=== PATIENT | male | born 1980 | race Caucasian/White ===

== ENCOUNTER 2018-08-16 18:32 | Inpatient (IN) ==
[2018-08-16] MEDS ORDERED: 0.9 % Sodium Chloride 1,000 ML IVC ONE (19:32)
[2018-08-16 19:48] LABS: Basophils % 0.2 %; Hemoglobin 13.6 g/dL (12.9-16.9); Immature Granulocytes % 0.6 % (0-4); Lymphocytes # 0.8 K/mcL (0.6-4.6); Lymphocytes % 8.8 %; Mean Corpuscular HGB Conc 34.9 g/dL (31.6-35.5); Mean Corpuscular Hemoglobin 34.4 pg (28.0-33.3); Mean Corpuscular Volume 98.7 fL (83.0-100.0); Mean Platelet Volume 8.4 fL (9.4-12.4); Monocytes # 1.1 K/mcL (0.0-1.3); Monocytes % 12.8 %; Neutrophils # 6.7 K/mcL (1.6-8.9); Platelet Count 140 K/mcL (140-400); Red Blood Count 3.95 M/mcL (4.19-5.50); Red Cell Distribution Width 12.4 % (11.5-14.5); Segmented Neutrophils % 77.6 %; White Blood Count 8.7 K/mcL (4.3-11.1)
[2018-08-16] MEDS ORDERED: *HR* LORazepam 2 MG/ML VIAL IVP ONE (19:51)
[2018-08-16] MEDS ORDERED: Isovue-370 500 ML BOTTLE IVP ONE (19:52)
[2018-08-16] MEDS ORDERED: *HR* LORazepam 2 MG/ML VIAL IVP PRN ×3 (19:55)
[2018-08-16] MEDS ORDERED: Thiamine (B-1) 100 MG TABLET PO SCH (20:00)
[2018-08-16] MEDS ORDERED: Vitamin B Complex/Vit C/Vit E 1 EACH TABLET PO SCH (20:00)
[2018-08-16] MEDS ORDERED: Folic Acid 1 MG TABLET PO SCH (20:00)
[2018-08-16 20:05] LABS: Alanine Aminotransferase 42 Units/L (7-52); Albumin 5.4 g/dL (3.5-5.7); Albumin/Globulin Ratio 1.6 (1.1-2.2); Alkaline Phosphatase 64 Units/L (34-104); Aspartate Amino Transferase 52 Units/L (13-39); BUN/Creatinine Ratio 13 (6-26); Bilirubin,Direct 0.5 mg/dL (0.0-0.2); Bilirubin,Indirect 2.2 mg/dL (0.0-1.2); Bilirubin,Total 2.7 mg/dL (0.3-1.0); Blood Urea Nitrogen 13 mg/dL (6-20); Calcium 10.8 mg/dL (8.6-10.3); Carbon Dioxide 21 mEq/L (23-29); Chloride 90 mEq/L (98-107); Globulin 3.3 g/dL (2.4-3.5); Glucose 101 mg/dL (70-105); Lipase 20 Units/L (11-82); Osmolality,Calculated 282 (280-300); Potassium 4.2 mEq/L (3.5-5.1); Sodium 136 mEq/L (136-145); Total Protein 8.7 g/dL (6.4-8.9); eGFR For African Americans > 60 (> 60); eGFR For Non-African Americans > 60 (> 60)
--- NOTE | 2018-08-16 20:20 | Emergency Department Note ---
Disposition Clinical Impression: Alcohol withdrawal Qualifiers: Complication of substance-induced condition: with unspecified complication Qualified Code(s): F10.239 - Alcohol dependence with withdrawal, unspecified Disposition: Admitted As Inpatient Time of Disposition: 22:28 General Adult HPI - General Chief complaint: ED Nausea/Vomiting/Diarrhea Stated complaint: vomiting after drinking Time Seen by Provider: 08/16/18 19:06 Source: patient, EMS Limitations: no limitations - History of Present Illness HPI Narrative: Mr. Manuel is a 38-year-old male presents to the ED complaining of epigastric pain. He reports he is "alcoholic." States his last drink was last night and he drank over 1 pint of vodka at 1 AM this morning. He denies any recent falls or loss of consciousness. States that he is trying to quit in the past 3 weeks but has had drinks here and there to prevent tremors. Reports epigastric pain is burning in sensation and has history of GERD but has not been taking his asked reflux medication as he is out of them. Had three episodes of bilious emesis today. Denies any hematemesis, hematochezia or melena. Initially complaining of a headache, tremors and heart palpitations. Denies fever, chills, shortness of breath, chest pain, hematuria, dysuria. Pain Scale: 5 - Related Data Home Medications Medication Instructions Recorded Confirmed Esomeprazole Magnesium [Nexium] 20 mg PO DAILY 08/16/18 08/16/18 Allergies Allergy/AdvReac Type Severity Reaction Status Date / Time No Known Allergies Allergy Verified 08/16/18 19:52 Constitutional: Denies: fever, chills Eyes: Denies: eye pain, vision change ENT ED: Denies: ear pain Cardiovascular: Reports: palpitations. Denies: chest pain Respiratory: Denies: cough, dyspnea Gastrointestinal: Reports: abdominal pain (Epigastric region), nausea, vomiting Genitourinary: Denies: dysuria, frequency, hematuria Integumentary: Denies: rash, abrasion Neurological: Reports: headache, other (Tremors) Psychiatric: Reports: anxiety Past Medical History - Past Medical History Medical history: Reports: hypertension, other - Social History Smoking Status: Never smoker Smokeless Tobacco Status: No Alcohol use: Reports: heavy, recent Drug use: Reports: none Physical Exam - General Limitations: no limitations General appearance: alert, in no apparent distress - Head Head exam: atraumatic, normocephalic - Eye Eye exam: Present: normal appearance, EOMI. Absent: scleral icterus, conjunctival injection - ENT ENT exam: normal exam, normal oropharynx, mucous membranes moist - Neck Neck exam: Present: normal inspection, full ROM, trachea midline - Chest Chest inspection: Present: normal inspection. Absent: symmetric chest wall rise, tenderness - Respiratory Respiratory exam: Present: normal lung sounds bilaterally. Absent: respiratory distress, wheezes - Cardiovascular Cardiovascular exam: Present: normal rhythm, tachycardia - Abdominal Exam Abdominal exam: Present: soft, tenderness. Absent: distention, guarding - Extremities Exam Extremities exam: Present: normal inspection, full ROM. Absent: calf tenderness - Neurological Exam Neurological exam: Present: alert, oriented X3, other (Bilateral arm tremors) - Psychiatric Psychiatric exam: Present: anxious - Skin Skin exam: Present: warm, dry, intact Course Vital Signs Temperature 97.3 F L 08/16/18 18:33 Pulse Rate 150 08/16/18 18:33 Respiratory Rate 20 08/16/18 18:33 Blood Pressure 116/78 08/16/18 18:33 O2 Sat by Pulse Oximetry 98 08/16/18 18:33 Temperature 97.3 F L 08/16/18 18:33 Pulse Rate 117 08/16/18 21:39 Respiratory Rate 20 08/16/18 18:33 Blood Pressure 133/78 08/16/18 21:39 O2 Sat by Pulse Oximetry 97 08/16/18 21:39 Oxygen Delivery Oxygen Delivery Room Air Medical Decision Making - [facility] Narrative Medical decision making narrative: Mr. Manuel is a 38 Jose male presented to the ED complaining of epigastric pain. He reports he has history of GERD and this stopped taking his medication because he was out of it. He also has history of alcohol use supports his last alcohol intake was at 1 AM this morning. States he started having episodes of emesis has had 3 bilious emesis today. Additionally complaining of headache, heart palpitations and tremors. CT of abdomen and pelvis is within normal limits. Lipase is within normal l imits. Alcohol level is elevated; bilirubin is elevated. CIWA protocol ordered. GI cocktail ordered. It improved his epigastric pain. Discussed the case with admitting hospitalist and he will be admitted. - Medical Records Medical records reviewed: Yes I reviewed the patient's medical records. - Lab Data Lab results reviewed: Yes I reviewed the patient's lab results. Result diagrams: 08/17/18 06:19 08/17/18 06:19 Lab Results 08/16/18 08/16/18 08/16/18 Range/Units 19:33 19:33 21:42 WBC 8.7 (4.3-11.1) K/mcL RBC 3.95 L (4.19-5.50) M/mcL Hgb 13.6 (12.9-16.9) g/dL Hct 39.0 (37.5-50.1) % MCV 98.7 (83.0-100.0) fL MCH 34.4 H (28.0-33.3) pg MCHC 34.9 (31.6-35.5) g/dL RDW 12.4 (11.5-14.5) % Plt Count 140 (140-400) K/mcL MPV 8.4 L (9.4-12.4) fL Immature Gran % 0.6 (0-4) % Seg Neutrophils % 77.6 % Lymphocytes % 8.8 % Monocytes % 12.8 % Eosinophils % 0.0 % Basophils % 0.2 % Neutrophils # 6.7 (1.6-8.9) K/mcL Lymphocytes # 0.8 (0.6-4.6) K/mcL Monocytes # 1.1 (0.0-1.3) K/mcL Eosinophils # 0.0 (0.0-0.6) K/mcL Basophils # 0.0 (0.0-0.2) K/mcL Sodium 136 (136-145) mEq/L Potassium 4.2 (3.5-5.1) mEq/L Chloride 90 L (98-107) mEq/L Carbon Dioxide 21 L (23-29) mEq/L BUN 13 (6-20) mg/dL Creatinine 1.03 (0.70-1.30) mg/dL Est GFR ( Amer) > 60 (> 60) Est GFR (Non-Af Amer) > 60 (> 60) BUN/Creatinine Ratio 13 (6-26) Glucose 101 (70-105) mg/dL Calculated Osmolality 282 (280-300) Calcium 10.8 H (8.6-10.3) mg/dL Total Bilirubin 2.7 H (0.3-1.0) mg/dL Direct Bilirubin 0.5 H (0.0-0.2) mg/dL Indirect Bilirubin 2.2 H (0.0-1.2) mg/dL AST 52 H (13-39) Units/L ALT 42 (7-52) Units/L Alkaline Phosphatase 64 (34-104) Units/L Serum Total Protein 8.7 (6.4-8.9) g/dL Albumin 5.4 (3.5-5.7) g/dL Globulin 3.3 (2.4-3.5) g/dL Albumin/Globulin Ratio 1.6 (1.1-2.2) Lipase 20 (11-82) Units/L Urine Opiates Screen Negative (Tqsajg=773) ng/mL Ur Barbiturates Screen Negative (Kcssgq=900) ng/mL Ur Phencyclidine Scrn Negative (Cutoff=25) ng/mL Ur Amphetamines Screen Negative (Auxscp=3344) ng/mL U Benzodiazepines Scrn Negative (Gfvaim=842) ng/mL Urine Cocaine Screen Negative (Cutoff= 300) ng/mL U Marijuana (THC) Screen Positive H (Cutoff = 50) ng/mL Ur Drug Screen Interp See Below Ethyl Alcohol 72 H (Less than 10) mg/dL - Radiology Data Radiology results reviewed: Yes I reviewed the patient's radiology results. Critical Care Time Critical Care Time: Yes Total Critical Care Time: 35 Attestation: Acute alcohol withdrawal with tachycardia arrhythmias and hypertension. IV fluid resuscitation and antibiotic epileptics required. Attestation Statement - Attestation Attestation: Dr Mueller note: Pt seen in conjunction w/ Resident Dr Amber Marina; Please see her charting for complete documentation; I spent face to face time w/ the pt and agree w/ the pt's treatment and disposition; patient presents with vomiting and epigastric pain. No lateralizing about pain no lower abdominal pain. Initially states that he only drank one day in the last 3 weeks and yesterday. It is noted tachycardia hypertension and anxiety he was questioned again by ourselves and staff and then he admits to actually drinking everyday for the past 3 weeks. Reports he did drink at home off and last a cane and was able to stop drinking on his own hospitalization in the past but has not had these symptoms prior. La bs are stable. Fluid resuscitation and Ativan given. Admitted and stabilized improved condition.
[2018-08-16 21:04] LABS: Ethanol 72 mg/dL (Less than 10)
[2018-08-16] MEDS ORDERED: GI Cocktail 40 ML EACH PO ONE (21:12)
[2018-08-16 22:04] LABS: Amphetamine Screen,Urine Negative ng/mL (Cutoff=1000); Barbiturate Screen,Urine Negative ng/mL (Cutoff=200); Benzodiazepines Screen,Urine Negative ng/mL (Cutoff=200); Cannabinoid Screen,Urine Positive ng/mL (Cutoff = 50); Cocaine Screen,Urine Negative ng/mL (Cutoff= 300); Opiate Screen,Urine Negative ng/mL (Cutoff=300); Phencyclidine Screen,Urine Negative ng/mL (Cutoff=25)
[2018-08-17] MEDS ORDERED: Naloxone 0.4 MG/ML INJ IVP PRN (05:20)
[2018-08-17] MEDS ORDERED: Pantoprazole 40 MG VIAL IVP ONE (05:26)
--- NOTE | 2018-08-17 05:36 | Internal Med History&Physical ---
Date of Encounter: 08/17/18 Time of Encounter: 04:12 Internal Medicine - H&P: HPI Chief complaint: Alcohol withdrawal Admitted From: Emergency Dept Plans for Post Hospital Care: Home History of present illness: Mr. Manuel is a 38 year old male Patient presented to the emergency room with heartburn like epigastric pain. He has a history of alcohol use, and states that he usually drinks a couple of beers a day. But recently he had a stressful event at work, leaving and going to the liquor store in obtaining a bottle of vodka. He states he drank the entire bottle of vodka about 2 days ago. Upon waking up the next morning he had nausea, vomiting and dizziness as well as epigastric abdominal pain. He attempted to drink Gatorade which he says improved his symptoms but they came back. He was helping his father install and air-conditioning unit in the window on the second floor of his home, but found going up and down the stairs was too much for him. He called the ambulance to take him to the hospital for further evaluation. In the emergency room patient's initial vital signs demonstrated a heart rate of 150, pulse of 20 otherwise within normal limits CBC within normal limits BMP demonstrated a chloride of 90 and carbon dioxide level of 21. Sodium and potassium within normal limits, and kidney function within normal limits. Calcium level X.8 Total bilirubin 2.7, AST 52, ALT 42, Alk Phos 64. Urine tox screen positive for marijuana Blood alcohol level 72 EKG: Sinus tachycardia, no ischemic changes Abdomen and pelvis CT: No acute abnormality, hepatic steatosis Patient was given 1 L of IV fluids, 1 mg by mouth for Acid a GI cocktail, 100 mg of thiamine and 1 vitamin B complex tab. He was started on CIWA protocol and admitted to the hospital for further management. Upon my evaluation, patient is resting comfortably in the hospital bed in no acute distress. He denies chest pain, abdominal pain, nausea, vomiting, diarrhea and constipation. He still has a slight heartburn feeling that his epigastric area of his abdomen. He has a family history of alcoholism and hypertension. Prior to coming to the emergency room he was experiencing nausea and vomiting as well as tremor. He takes melatonin and heartburn medicine but no other regular medicines. He is full code. Past Med Surg Social Fam HX - Past Medical History Medical history: hypertension, other Additional medical history: alcoholism - Social History Smoking Status: Never smoker Smokeless Tobacco Status: No Alcohol use: heavy, recent Drug use: none Internal Medicine - H&P: Meds Esomeprazole Magnesium [Nexium] 20 mg PO DAILY 08/16/18 [History] Allergy/AdvReac Type Severity Reaction Status Date / Time No Known Allergies Allergy Verified 08/16/18 19:52 All Systems PM: A 10-system review of systems was performed and is negative for pertinent findings except as documented above in the HPI. - Constitutional Vitals: Temp Pulse Resp BP Pulse Ox 98.5 F 95 11 132/85 96 08/17/18 04:40 08/17/18 04:40 08/17/18 04:40 08/17/18 04:40 08/17/18 04:40 General appearance: Present: cooperative, A&O X 3, pleasant, no acute distress, answers questions appropriately Exam: - - Head Head exam: Present: normal inspection - Eye Eye exam: Present: EOMI, normal appearance, scleral icterus - Neck Neck exam general surgery: Present: full ROM - Respiratory Respiratory exam: Present: CTAB. Absent: rales, respiratory distress, rhonchi, wheezes - Cardiovascular Cardiovascular exam: Present: RRR. Absent: diastolic murmur, systolic murmur - GI/Abdominal GI/Abdominal exam: Present: normal bowel sounds, soft. Absent: tenderness - Extremities Exam Extremities exam: Present: warm, radial pulses palpable and symmetrical. Absent: calf tenderness, pedal edema, tenderness - Neurological Exam Neurological exam: Present: oriented X3, no focal deficits, strengths equal and symetr throughout. Absent: motor sensory deficit, pronater drift, facial droop, speech deficit Additional comments: No tremor - Skin Skin exam: Present: dry, normal color, warm Internal Med - H&P Results - Labs CBC & Chem 7: 08/16/18 19:33 08/16/18 19:33 Labs: Short CBC 08/16/18 Range/Units 19:33 WBC 8.7 (4.3-11.1) K/mcL Hgb 13.6 (12.9-16.9) g/dL Hct 39.0 (37.5-50.1) % Plt Count 140 (140-400) K/mcL Neutrophils # 6.7 (1.6-8.9) K/mcL BMP 08/16/18 19:33 Sodium 136 Potassium 4.2 Chloride 90 L Carbon Dioxide 21 L BUN 13 Creatinine 1.03 Glucose 101 Calcium 10.8 H Liver Function 08/16/18 Range/Units 19:33 Total Bilirubin 2.7 H (0.3-1.0) mg/dL Direct Bilirubin 0.5 H (0.0-0.2) mg/dL AST 52 H (13-39) Units/L ALT 42 (7-52) Units/L Alkaline Phosphatase 64 (34-104) Units/L Albumin 5.4 (3.5-5.7) g/dL - Impressions ITS Impressions Abdomen/Pelvis CT 08/16/18 19:52 IMPRESSION: No acute abnormality in the abdomen or pelvis. Hepatic steatosis. D/ / Armond Daniel MD / Armond Daniel MD Interpreting Provider: Armond Daniel MD - Assessment and Plan (1) Alcohol withdrawal Current Visit: Yes Status: Acute Assessment and plan: CIWA initiated in ER. Had tremor initially, but this has now resolved. Patient denies going through withdrawal before, but has stopped his alcohol use before for up to 3 weeks time. He says he stopped cold turkey and did not have symptoms like this. Continue CIWA protocol NPO IV Thiamine IV fluids IV protonix Qualifiers: Complication of substance-induced condition: with unspecified complication Qualified Code(s): F10.239 - Alcohol dependence with withdrawal, unspecified (2) GERD (gastroesophageal reflux disease) Current Visit: Yes Status: Acute Assessment and plan: Improved after GI cocktail. Continue IV protonix Qualifiers: Esophagitis presence: without esophagitis Qualified Code(s): K21.9 - Gas tro-esophageal reflux disease without esophagitis (3) Total bilirubin, elevated Current Visit: Yes Status: Acute Assessment and plan: Patient's bilirubin was 2.7. In April of this year his bilirubin was 2.1. Slight scleral icterus on exam. CT of abdomen demonstrates hepatic steatosis. He has a known history of alcoholism. Other liver function tests within normal limits aside from mildly elevated AST of 52. Likely secondary to his alcohol use. Repeat labs in the morning Recommend cessation of alcohol (4) Insomnia Current Visit: Yes Status: Acute Assessment and plan: Patient takes melatonin at home Melatonin as needed Qualifiers: Insomnia type: unspecified Qualified Code(s): G47.00 - Insomnia, unspecified (5) DVT prophylaxis Current Visit: Yes Status: Acute Assessment and plan: SCDs - Time Spent With Patient Total time spent is greater than 50% in coordination of care (as documented) at patient's floor/unit and/or counseling patient: Greater than 35 minutes
[2018-08-17] MEDS ORDERED: 0.9 % Sodium Chloride 1,000 ML IVC ONE (05:40)
[2018-08-17 07:03] LABS: Hematocrit 37.8 % (37.5-50.1); Hemoglobin 12.8 g/dL (12.9-16.9); Mean Corpuscular HGB Conc 33.9 g/dL (31.6-35.5); Mean Corpuscular Hemoglobin 34.2 pg (28.0-33.3); Mean Corpuscular Volume 101.1 fL (83.0-100.0); Mean Platelet Volume 8.6 fL (9.4-12.4); Platelet Count 117 K/mcL (140-400); Red Blood Count 3.74 M/mcL (4.19-5.50); Red Cell Distribution Width 12.4 % (11.5-14.5)
[2018-08-17 07:08] LABS: White Blood Count 3.7 K/mcL (4.3-11.1)
[2018-08-17 07:22] LABS: Alanine Aminotransferase 30 Units/L (7-52); Albumin 4.7 g/dL (3.5-5.7); Albumin/Globulin Ratio 1.7 (1.1-2.2); Alkaline Phosphatase 53 Units/L (34-104); Aspartate Amino Transferase 39 Units/L (13-39); BUN/Creatinine Ratio 18 (6-26); Bilirubin,Total 3.3 mg/dL (0.3-1.0); Blood Urea Nitrogen 16 mg/dL (6-20); Calcium 10.4 mg/dL (8.6-10.3); Carbon Dioxide 28 mEq/L (23-29); Chloride 95 mEq/L (98-107); Globulin 2.7 g/dL (2.4-3.5); Glucose 82 mg/dL (70-105); Osmolality,Calculated 278 (280-300); Phosphorous 3.9 mg/dL (2.7-4.5); Potassium 3.9 mEq/L (3.5-5.1); Sodium 134 mEq/L (136-145); Total Protein 7.4 g/dL (6.4-8.9); eGFR For African Americans > 60 (> 60); eGFR For Non-African Americans > 60 (> 60)
--- NOTE | 2018-08-17 08:03 | Event Note ---
Date of Encounter: 08/17/18 Time of Encounter: 10:00 Mr Kaleb has pmhx HTN and etoh abuse. He is admitted with epigastric pain and elevated T bili in setting of etoh intoxication Awake, family at bedside. His epigastric pain and substernal burning is resolved since receiving gi cocktail last night. no nausea, emesis or abd pain. he is hungry today. Last drink of etoh was heavy intake of bottle of vodka 08/15. No tremors, sweats, palpitations. Denies rash, yellowing of skin or eyes, itching. No ruq pain after meals, bloating or distension. does have his gall bladder. no family hx of liver dz. discussed lab findings and gi consult with pt. answered all questions. gen- alert, awake,appears stated age eyes- pupils equal round , no scleral icterus cv- reg rate and rhythm, normal s1,s2, no murmurs appreciated, no le edema lungs- ctabl, no wheezing, rhonchi or crackles, normal resp effort on room air abd- soft, non tender, non distended, + bs skin- no rash, jaundice neuro- AAOx3, CN grossly intact, no hand tremor Etoh Intoxication etoh level 72 on admit NOT in etoh withdrawal -cont ciwa, bannana bags x3 then will change to oral vitamins/supplements -if etoh withdrawal suspect will occur in next 24 hrs Epigastric pain, resolved, suspect gastritis related to etoh use GERD hx -change to oral PPI, cont to monitor Hepatic Steatosis on CT scan Elevated Tbili, predominant indirect -INR normal, hep panel ordered this morning and neg suspect related to etoh -d/w GI and they will see in consultation today, defer further imaging and testing at this time pending GI recs, repeat cmp in am Sinus tachycardia- resolved with ivfs vte ppx- SCDs and ambulate diet pending gi eval and recs
[2018-08-17 09:37] LABS: INR 1.2; Prothrombin Time 13.1 Seconds (9.4-12.1)
[2018-08-17 10:20] LABS: Hepatitis B Surface Antigen Nonreactive (Nonreactive)
[2018-08-17 10:48] LABS: Hepatitis B Core IgM Nonreactive (Nonreactive)
[2018-08-17 10:49] LABS: Hepatitis C Virus Antibody Nonreactive (Nonreactive)
[2018-08-17 10:50] LABS: Hepatitis A Antibody IgM Nonreactive (Nonreactive)
--- NOTE | 2018-08-17 15:03 | Gastroenterology Consult Note ---
<GreciaAngely Menendez - Last Filed: 08/17/18 14:58> Date of Encounter: 08/17/18 Time of Encounter: 10:00 - Assessment and plan (1) Alcoholic hepatitis without ascites Status: Acute Assessment and plan: 38-year-old male who presented with abdominal pain. He has alcoholic hepatitis with jaundice, no ascites.Meld NA: 17 DF 7.9 [place] class B. there is no indication for steroids at this time. Labratory workup ordered for underlying liver disease. Pt is advised complete abstinence. Monitor labs. (2) Gastritis Status: Acute Assessment and plan: likely alcoholic gastritis. Will start clear liquids, if not tolerated pt will need EGD tomorrow. Dr Delgado to decide if pt needs EGD. Continue pPI. Qualifiers: Gastritis type: alcoholic Chronicity: acute Gastritis bleeding: without bleeding Qualified Code(s): K29.20 - Alcoholic gastritis without bleeding - Time Spent With Patient Total time spent is greater than 50% in coordination of care (as documented) at patient's floor/unit and/or counseling patient: GI History of Present Illness - Data of Consult Patient: new to practice Consult date: 08/17/18 Requesting Physician: Pamela So - Consult Narrative Reason for consult: jaundice, epigastric pain History of present illness: Mr. Manuel is a 38 year old male who presented to the emergency room with heartburn like epigastric pain. He has a history of alcohol use, and states that he usually drinks at least 6 beers or 6 "airplane size bottles of vodka daily'. He admits to drinking this way since the age of 20. He reports he re cently he had a stressful event at work, leaving and going to the liquor store in obtaining a bottle of vodka. He states he drank the entire bottle of vodka about 2 days ago. Upon waking up the next morning he had nausea, vomiting and dizziness as well as epigastric abdominal pain. He attempted to drink Gatorade which he says improved his symptoms but they came back. He reports vomiting, severe GERD and burning in his throat for 2 days prior to admission. He states he has occasional diarrhea when he drinks but he denies any rectal bleeding or melena. He states pain improved with GI coctail. He does take omeprazole daily at home and states if he misses a day he will have severe symptoms. He denies previous endoscopy or family history of liver disease. Meld NA: 17 DF 7.9 [place] class B NSAIDS: none Anticoagulants: none proedures: none Past Med Surg Social Fam HX - Past Medical History Medical history: hypertension, other Additional medical history: alcoholism - Social History Smoking Status: Never smoker Smokeless Tobacco Status: No Alcohol use: heavy, recent Drug use: none Review of Systems: GI: as per [place] GENERAL: denies fever, has some chills EYES: yellow discoloration ENT: denies pain with swallowing or difficulty swallowing CARDIO: denies chest pain, palpitations RESP: No Shortness of breath with exertion : denies change in color of urine NEURO: denies any weakness HEME: Denies any bruising MS: denies joint pain, joint swelling or back pain. DERM: denies rash or itching PSYCH: history of anxiety and depression - Constitutional Vitals: Temp Pulse Resp BP Pulse Ox 98.1 F 72 17 118/80 99 08/17/18 11:33 08/17/18 11:33 08/17/18 11:33 08/17/18 11:33 08/17/18 11:33 Exam: CONSTITUTIONAL:alert, no acute distre ss.HEAD:normocephalic.EYES:jaundice.NECK:no obvious swelling.HEART:regular rate and rhythm, no murmurs.LUNGS:bilateral good air entry.ABDOMEN:non distended, soft, non tender, no masses palpable, no organomegaly.RECTAL EXAM:Deferred.EXTREMITIES:no clubbing, cyanosis or edema.SKIN:jaundice noted.NEUROLOGIC:no obvious focal defect. Results - Labs CBC & Chem 7: 08/17/18 06:19 08/17/18 06:19 Labs: Last Result 08/17/18 08/17/18: 09:25 Calcium 10.4 H Ferritin 393 H Entire Visit 08/17/18 08/17/18 08/17/18 06:19 06:19 08:47 Hgb 12.8 L Hct 37.8 PT 13.1 H Ferritin Total Bilirubin 3.3 H AST 39 ALT 30 08/17/18 09:25 Hgb Hct PT Ferritin 393 H Total Bilirubin AST ALT - ABG ABG results: PT/INR, D-dimer PT 13.1 Seconds (9.4-12.1) H 08/17/18 08:47 - Impressions Impressions Abdomen/Pelvis CT 08/16/18 19:52 IMPRESSION: No acute abnormality in the abdomen or pelvis. Hepatic steatosis. 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 AVOID al cohol. You had abnoraml liver labs and fatty infiltration of the liver as we discussed. You will follow up with the GI doctor Dr Delgado. He will review pending additional labs his team collected while you were here at that appt. Monitor for return of abdominal pain. And as we discussed, if you note any blood in your stool or black tar like stool, contact your doctor immediately. It is recommended you see yor primary doctor in the next week and have a repeat set of lab obtained at that time. 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 Referrals: Corbin Delgado MD [Partnered Physician] - (submitted a web request for Dr. Davenport office to call patient with a hospital follow up) Elliot Wilder DO [Resident] - 08/23/18 2:00 pm Prescriptions: Folic Acid 1 mg PO DAILY #30 tablet Thiamine (B-1) [Vitamin B-1] 100 mg PO DAILY #30 tablet <Corbin Delgado - Last Filed: 08/22/18 04:08> Date of Encounter: 08/17/18 - Time Spent With Patient Total time spent is greater than 50% in coordination of care (as documented) at patient's floor/unit and/or counseling patient: GI History of Present Illness - Data of Consult Requesting Physician: Pamela So - Consult Narrative History of present illness: Mr. Manuel is a 38 year old male - Constitutional Vitals: Temp Pulse Resp BP Pulse Ox 98.3 F 71 16 137/88 98 08/19/18 07:30 08/19/18 12:20 08/19/18 07:30 08/19/18 12:20 08/19/18 12:20 Results - Labs CBC & Chem 7: 08/19/18 06:48 08/18/18 05:56 - ABG ABG results: PT/INR, D-dimer PT 12.8 Seconds (9.4-12.1) H 08/18/18 05:56 - Attending Attestation Patient admitted with acute alcoholic hepatitis as above. Aggressive supportive care for now. Further recommendations to follow. I have personally performed a face to face evaluation on this patient. I have reviewed and agree with the care plan. History and Exam by me shows:
[2018-08-17] MEDS: Thiamine (B-1) 100 MG, Folic Acid 1 MG, MVI, adult with vitamin K 10 ML in 0.9 % Sodi... IVPB SCH (17:02)
[2018-08-18 06:46] LABS: Eosinophils % 0.5 %; Red Blood Count 3.35 M/mcL (4.19-5.50); Red Cell Distribution Width 11.8 % (11.5-14.5)
[2018-08-18 06:49] LABS: Basophils % 0.5 %; Hematocrit 33.5 % (37.5-50.1); Hemoglobin 11.4 g/dL (12.9-16.9); Immature Granulocytes % 0.3 % (0-4); Immature Platelets 3.4 % (1.1-6.1); Lymphocytes % 38.5 %; Mean Platelet Volume 9.3 fL (9.4-12.4); Monocytes # 0.7 K/mcL (0.0-1.3); Neutrophils # 2.8 K/mcL (1.6-8.9); Platelet Count 109 K/mcL (140-400); Segmented Neutrophils % 48.2 %; White Blood Count 5.8 K/mcL (4.3-11.1)
[2018-08-18 06:56] LABS: Alanine Aminotransferase 25 Units/L (7-52); Albumin/Globulin Ratio 1.7 (1.1-2.2); Alkaline Phosphatase 45 Units/L (34-104); Aspartate Amino Transferase 32 Units/L (13-39); BUN/Creatinine Ratio 21 (6-26); Bilirubin,Total 3.2 mg/dL (0.3-1.0); Blood Urea Nitrogen 18 mg/dL (6-20); Calcium 9.6 mg/dL (8.6-10.3); Carbon Dioxide 24 mEq/L (23-29); Chloride 98 mEq/L (98-107); Globulin 2.3 g/dL (2.4-3.5); Glucose 87 mg/dL (70-105); INR 1.1; Osmolality,Calculated 277 (280-300); Potassium 3.6 mEq/L (3.5-5.1); Prothrombin Time 12.8 Seconds (9.4-12.1); Sodium 133 mEq/L (136-145); Total Protein 6.3 g/dL (6.4-8.9); eGFR For African Americans > 60 (> 60); eGFR For Non-African Americans > 60 (> 60)
[2018-08-18 06:57] LABS: Lymphocytes # 2.2 K/mcL (0.6-4.6)
--- NOTE | 2018-08-18 08:03 | Internal Med Progress Note ---
Hospitalist Progress Note - Encounter Date of Encounter: 08/18/18 Time of Encounter: 09:20 - Subjective Interval History: awake. no epigastric pain, n/v with clears last night. has been npo per gi this morning in case getting egd. denies tremors, sweats, palpitations. no rash itching or yellowing of skin - Exam Vitals: Temp Pulse Resp BP Pulse Ox 97.7 F 70 14 108/79 99 08/18/18 07:36 08/18/18 07:36 08/18/18 07:36 08/18/18 07:36 08/18/18 07:36 Exam: gen- alert, awake,appears stated age eyes- pupils equal round , no scleral icterus cv- reg rate and rhythm, normal s1,s2, lungs- ctabl, normal resp effort on room air abd- soft, non tender, non distended, + bs skin- no rash, jaundice neuro- AAOx3, CN grossly intact, no hand tremor - Assessment and Plan (1) Epigastric pain Current Visit: Yes Status: Resolved (2) GERD (gastroesophageal reflux disease) Current Visit: Yes Status: Chronic (3) Total bilirubin, elevated Current Visit: Yes Status: Chronic (4) Alcohol intoxication Current Visit: Yes Status: Resolved (5) Hepatic steatosis Current Visit: Yes Status: Acute - Summary of Assessment and Plan Summary of Assessment and Plan: Mr Manuel has pmhx HTN and etoh abuse. He is admitted with epigastric pain and elevated T bili in setting of etoh intoxication Etoh Intoxication, resolved etoh level 72 on admit Alcohol Abuse hx NOT in etoh withdrawal -cont ciwa, bannana bags x3 then will change to oral vitamins/supplements -if etoh withdrawal suspect will occur today, no ativan requirement as of yet, cont to monitor Epigastric pain, resolved, suspect gastritis related to etoh use GERD hx -oral PPI, possible EGD by GI today, npo, if no plan to scope as tolerated clears will then advance diet, fu GI recs today Hepatic Steatosis on CT scan Elevated Tbili, predominant indirect INR normal, hep panel neg suspect related to etoh -d/w GI and they are following, will fu recs today Acute anemia, suspect dilutional, no active bleeding, but given GI sxs will cont to monitor, gi following as above vte ppx- SCDs and ambulate diet pending gi eval and recs Plan of Care Discussed with: patient Internal Medicine: Result - Labs CBC & Chem 7: 08/18/18 05:56 08/18/18 05:56 Labs: Short CBC 08/18/18 Range/Units 05:56 WBC 5.8 D (4.3-11.1) K/mcL Hgb 11.4 L (12.9-16.9) g/dL Hct 33.5 L (37.5-50.1) % Plt Count 109 L (140-400) K/mcL Neutrophils # 2.8 (1.6-8.9) K/mcL BMP 08/18/18 05:56 Sodium 133 L Potassium 3.6 Chloride 98 Carbon Dioxide 24 BUN 18 Creatinine 0.86 Glucose 87 Calcium 9.6 Liver Function 08/18/18 Range/Units 05:56 Total Bilirubin 3.2 H (0.3-1.0) mg/dL AST 32 (13-39) Units/L ALT 25 (7-52) Units/L Alkaline Phosphatase 45 (34-104) Units/L Albumin 4.0 (3.5-5.7) g/dL - ABG Interpretation ABG results: PT/INR, D-dimer PT 12.8 Seconds (9.4-12.1) H 08/18/18 05:56 - VTE Documentation of Mechanical Device: Intermittent pneumatic compression device Consult Discharge Plan - Plan Referrals: NONE,PCP [Primary Care Provider] - (2) GERD (gastroesophageal reflux disease) Qualifiers: Esophagitis presence: without esophagitis Qualified Code(s): K21.9 - Gastro- esophageal reflux disease without esophagitis (4) Alcohol intoxication Qualifiers: Complication of substance-induced condition: uncomplicated Qualified Code(s): F10.920 - Alcohol use, unspecified with intoxication, uncomplicated
--- NOTE | 2018-08-18 15:48 | Electrocardiograph Report ---
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
--- NOTE | 2018-08-18 15:48 | Electrocardiograph Report ---
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
[2018-08-18] MEDS: Thiamine (B-1) 100 MG, Folic Acid 1 MG, MVI, adult with vitamin K 10 ML in 0.9 % Sodi... IVPB SCH (17:10)
[2018-08-18] MEDS ORDERED: Melatonin 3 MG TABLET PO ONE (21:36)
[2018-08-19 07:41] LABS: Basophils % 0.5 %; Eosinophils # 0.1 K/mcL (0.0-0.6); Eosinophils % 0.8 %; Hematocrit 33.7 % (37.5-50.1); Hemoglobin 11.5 g/dL (12.9-16.9); Immature Granulocytes % 0.3 % (0-4); Lymphocytes # 2.2 K/mcL (0.6-4.6); Lymphocytes % 34.3 %; Mean Corpuscular HGB Conc 34.1 g/dL (31.6-35.5); Mean Corpuscular Hemoglobin 33.9 pg (28.0-33.3); Mean Corpuscular Volume 99.4 fL (83.0-100.0); Mean Platelet Volume 9.5 fL (9.4-12.4); Monocytes # 0.6 K/mcL (0.0-1.3); Monocytes % 9.4 %; Neutrophils # 3.4 K/mcL (1.6-8.9); Platelet Count 101 K/mcL (140-400); Red Blood Count 3.39 M/mcL (4.19-5.50); Red Cell Distribution Width 11.7 % (11.5-14.5); Segmented Neutrophils % 54.7 %; White Blood Count 6.3 K/mcL (4.3-11.1)
[2018-08-19 07:54] LABS: Albumin 4.1 g/dL (3.5-5.7); Albumin/Globulin Ratio 1.7 (1.1-2.2); Bilirubin,Direct 0.4 mg/dL (0.0-0.2); Bilirubin,Indirect 1.8 mg/dL (0.0-1.2); Bilirubin,Total 2.2 mg/dL (0.3-1.0); Globulin 2.4 g/dL (2.4-3.5); Total Protein 6.5 g/dL (6.4-8.9)
--- NOTE | 2018-08-19 10:50 | Internal Med Progress Note ---
Hospitalist Progress Note - Encounter Date of Encounter: 08/19/18 - Exam Vitals: Temp Pulse Resp BP Pulse Ox 98.3 F 64 16 110/79 98 08/19/18 07:30 08/19/18 07:30 08/19/18 07:30 08/19/18 07:30 08/19/18 07:30 - Assessment and Plan (1) Epigastric pain Current Visit: Yes Status: Resolved (2) GERD (gastroesophageal reflux disease) Current Visit: Yes Status: Chronic (3) Total bilirubin, elevated Current Visit: Yes Status: Chronic (4) Alcohol intoxication Current Visit: Yes Status: Resolved (5) Hepatic steatosis Current Visit: Yes Status: Acute - Time Spent with Patient Total time spent is greater than 50% in coordination of care (as documented) at patient's floor/unit and/or counseling patient: Internal Medicine: Result - Labs CBC & Chem 7: 08/19/18 06:48 08/18/18 05:56 Labs: Short CBC 08/19/18 Range/Units 06:48 WBC 6.3 (4.3-11.1) K/mcL Hgb 11.5 L (12.9-16.9) g/dL Hct 33.7 L (37.5-50.1) % Plt Count 101 L (140-400) K/mcL Neutrophils # 3.4 (1.6-8.9) K/mcL Liver Function 08/19/18 Range/Units 06:48 Total Bilirubin 2.2 H (0.3-1.0) mg/dL Direct Bilirubin 0.4 H (0.0-0.2) mg/dL AST 63 H (13-39) Units/L ALT 45 (7-52) Units/L Alkaline Phosphatase 48 (34-104) Units/L Albumin 4.1 (3.5-5.7) g/dL - ABG Interpretation ABG results: PT/INR, D-dimer PT 12.8 Seconds (9.4-12.1) H 08/18/18 05:56 - VTE Documentation of Mechanical Device: Intermittent pneumatic compression device Consult Discharge Plan - Plan Referrals: NONE,PCP [Primary Care Provider] - (2) GERD (gastroesophageal reflux disease) Qualifiers: Esophagitis presence: without esophagitis Qualified Code(s): K21.9 - Gastro- esophageal reflux disease without esophagitis (4) Alcohol intoxication Qualifiers: Complication of substance-induced condition: uncomplicated Qualified Code(s): F10.920 - Alcohol use, unspecified with intoxication, uncomplicated
--- NOTE | 2018-08-19 10:51 | Discharge Summary ---
- NOTES TO OUTPATIENT PROVIDER Notes to Outpatient Provider: follow up with GI for hepatic steatosis with abnormal labs. Anemia and thrombocytopenia with repeat lab draws and fluids this admit. Given his liver disease and epigastric pain on presentation- please check cbc and cmp outpt in next week to confirm improved Orders not resulted at time of discharge: Pending orders 08/17/18 09:25 AFP Tumor Marker Non- Routine SEPIDEH IgG RAJ rflx IFA Routine Alpha-1-AT Deficiency Reflex Routine Celiac Disease Reflex [place]ahan Routine Ceruloplasmin Routine F-Actin IgG Reflex Sm Muscle Routine MPO/PR3 (ANCA) Antibodies Routine Mitochondrial M2 Antibody, IgG Routine Saccharomyces cerevisiae Abs Routine Date of Encounter: 08/19/18 Time of Encounter: 09:30 - Discharge Diagnosis (1) Epigastric pain Priority: Primary Status: Resolved Assessment and Plan: Epigastric pain, resolved, suspect gastritis related to etoh use GERD hx -oral PPI on dc, no egd required this admission but fu with GI outpt (2) GERD (gastroesophageal reflux disease) Priority: Secondary Status: Chronic Assessment and Plan: as above (3) Total bilirubin, elevated Priority: Secondary Status: Chronic Assessment and Plan: Hepatic Steatosis on CT scan Elevated Tbili, predominant indirect down trended with etoh cessation INR normal, hep panel neg autoimmune work up by GI pending -fu with GI outpt for results and continued monitoring (4) Alcohol intoxication Priority: Secondary Status: Resolved Assessment and Plan: Etoh Intoxication, resolved etoh level 72 on admit Alcohol Abuse hx NOT in etoh withdrawal -oral vitamins/supplements -encouraged cessation Qualifiers: Complication of substance-induced condition: uncomplicated Qualified Code(s): F10.920 - Alcohol use, unspecified with intoxication, uncomplicated (5) Hepatic steatosis Priority: Secondary Status: Acute Assessment and Plan: as above Hospital course: Mr. Manuel is a 38 year old male pmhx HTN and etoh abuse. He is admitted with epigastric pain and elevated T bili in setting of etoh intoxication. He did not go through etoh withdrawal while here. He was treated with IV multi vit/thiamine/folate and transitioned to oral supplements on dc with etoh cessation education provided. GI evaluated his for epigastric pain and abnormal LFTs and finding of hepatic steatosis. He did not require procedural intervention. His epigastric pain resolved with gi cocktail and did not return. His LFTs improved without intervention. Autoimmune work up started inpt and pt will fu outpt with GI. He did have drop in hgb this admit without any signs of bleeding. counselled on warning signs of gi bleeding prior to dc and will fu with pcp. Repeat labs outpt in next week. dc to home in stable condition, further details of course are listed in the diagnoses section of this document. Time spent discussing smoking cessation with patient: more than 10 minutes - Time Spent with Patient Total time spent providing and/or coordinating discharge services: Time spent: Greater than 30 minutes (35 min) - Discharge Medications Prescriptions: New Folic Acid 1 mg PO DAILY #30 tablet Thiamine (B-1) [Vitamin B-1] 100 mg PO DAILY #30 tablet Continued Esomeprazole Magnesium [Nexium] 20 mg PO DAILY Lisinopril-HCTZ 20-12.5 [Prinzide 20-12.5] 1 tab PO DAILY Melatonin 5 mg PO HS PRN PRN Reason: Sleep Multivitamin [Daily Multiple Vitamin] 1 tab PO DAILY Home Medications: Esomeprazole Magnesium [Nexium] 20 mg PO DAILY 08/16/18 [History] Lisinopril-HCTZ 20-12.5 [Prinzide 20-12.5] 1 tab PO DAILY 08/17/18 [History] Melatonin 5 mg PO HS PRN 08/17/18 [History] Multivitamin [Daily Multiple Vitamin] 1 tab PO DAILY 08/17/18 [History] Folic Acid 1 mg PO DAILY #30 tablet 08/19/18 [Rx] Thiamine (B-1) [Vitamin B-1] 100 mg PO DAILY #30 tablet 08/19/18 [Rx] Allergies/Adverse Reactions: Allergy/AdvReac Type Severity Reaction Status Date / Time No Known Allergies Allergy Verified 08/17/18 21:29 Date of admission: 08/16/18 22:47 Primary care physician: PCP NONE Consults: 08/17/18 05:28 Consult to Spotlight Operator [CONS] Routine Reason for SW Consult: Alcoholism 08/17/18 08:10 Consult to Gastroenterology [CONS] Routine Consulting Provider: Gastroenterology Thea Reason for Consult: elevating t bili, (pt with etoh abuse), epigastric pain, eval for further work up, intervention Call Completed: Yes Discharging clinician: Pamela So - Constitutional Vitals: Temp Pulse Resp BP Pulse Ox 98.3 F 64 16 110/79 98 08/19/18 07:30 08/19/18 07:30 08/19/18 07:30 08/19/18 07:30 08/19/18 07:30 Exam: awake, alert, eating regular breakfast. no return of epigastric pain, no other pain, n/v/d. feeling great and back to baseline. no yellowing of skin or itching. No tremor sweats or shakes. discussed dc plan in detail and answered all questions. gen- alert, awake,appears stated age eyes- no scleral icterus cv- reg rate and rhythm, normal s1,s2, no le edema lungs- ctabl, normal resp effort on room air abd- soft, non tender, non distended, + bs, no guarding skin- no rash, jaundice neuro- AAOx3, no hand tremor - Patient Status Disposition: Home, Self-Care Condition: Good Functional capacity at discharge: independent ambulation Overall status at discharge: patient is back to baseline - Discharge Instructions Follow Up With: NONE,PCP [Primary Care Provider] - Corbin Delgado MD [Partnered Physician] - Additional Instructions: Continue to take your acid it support analyst Esomeprazole daily in the morning. AVOID alcohol. You had abnoraml liver labs and fatty infiltration of the liver as we discussed. You will follow up with the GI doctor Dr Delgado. He will review pending additional labs his team collected while you were here at that appt. Monitor for return of abdominal pain. And as we discussed, if you note any blood in your stool or black tar like stool, contact your doctor immediately. It is recommended you see yor primary doctor in the next week and have a repeat set of lab obtained at that time. Prescriptions for supplements recommended regarding your alcohol use were sent to your [facility] pharmacy and should be available for picker feeder. - Diet and Activity Activity: increase activity as tolerated Diet: advance to your usual diet - VTE Documentation of Mechanical Device: Intermittent pneumatic compression device
[2018-08-19 12:21] VITALS: BP 137/88
[2018-08-20 10:38] LABS: AFP Tumor Marker Non-Pregnant 2 ng/mL (0-9); Myeloperoxidase Ab 0 AU/mL (0-19); Serine Protease-3 Antibody 1 AU/mL (0-19)
[2018-08-20 10:39] LABS: ANA IgG by ELISA NONE DETECTED (None Detected); F-Actin (sm muscle) Ab IgG 13 Units (0-19); Immunoglobulin A (CELIAC) 278 mg/dL (68-408); Tissue Transglutaminase IgA 0 U/mL (0-3)
[2018-08-21 19:48] LABS: A1A SZ Specimen WHOLE BLOOD; Alpha-1-Antitrypsin S Allele NEGATIVE; Alpha-1-Antitrypsin Z Allele NEGATIVE
[2018-08-22 10:21] LABS: Alpha-1-Antitrypsin 119 mg/dL (90-200)
== END 2018-08-19 15:40 | disposition home or self-care (01) | DRG 392 ==
LOC: EMEROOARM 18:32 → SUATTDRO 22:47 → 2NENU 22:47
PROVIDERS: ADMIT Family Medicine; ATTEND Internal Medicine

== ENCOUNTER 2018-10-01 19:13 | Observation (INO) ==
[2018-10-01] MEDS ORDERED: 0.9 % Sodium Chloride 1,000 ML IVC ONE ×2 (19:37→19:51)
[2018-10-01] MEDS ORDERED: GI Cocktail 40 ML EACH PO ONE (19:39)
[2018-10-01] MEDS ORDERED: Ondansetron 4 MG/2 ML VIAL IVP ONE (19:40)
[2018-10-01] MEDS ORDERED: Pantoprazole 40 MG VIAL IVP ONE (19:51)
[2018-10-01 20:27] LABS: Alanine Aminotransferase 172 Units/L (7-52); Albumin 4.8 g/dL (3.5-5.7); Albumin/Globulin Ratio 1.3 (1.1-2.2); Alkaline Phosphatase 63 Units/L (34-104); Aspartate Amino Transferase 107 Units/L (13-39); BUN/Creatinine Ratio 13 (6-26); Bilirubin,Total 1.5 mg/dL (0.3-1.0); Blood Urea Nitrogen 13 mg/dL (6-20); Calcium 9.9 mg/dL (8.6-10.3); Carbon Dioxide 18 mEq/L (23-29); Chloride 95 mEq/L (98-107); Globulin 3.6 g/dL (2.4-3.5); Glucose 107 mg/dL (70-105); Lipase 47 Units/L (11-82); Osmolality,Calculated 283 (280-300); Potassium 4.1 mEq/L (3.5-5.1); Sodium 136 mEq/L (136-145); Total Protein 8.4 g/dL (6.4-8.9); Troponin I < 0.03 ng/mL (< 0.04); eGFR For African Americans > 60 (> 60); eGFR For Non-African Americans > 60 (> 60)
[2018-10-01] MEDS ORDERED: *HR* LORazepam 2 MG/ML VIAL IVP STA (20:55)
[2018-10-01 21:06] LABS: Basophils # 0.1 K/mcL (0.0-0.2); Hematocrit 41.8 % (37.5-50.1); Hemoglobin 14.6 g/dL (12.9-16.9); Immature Granulocytes % 0.3 % (0-4); Lymphocytes # 1.6 K/mcL (0.6-4.6); Mean Corpuscular HGB Conc 34.9 g/dL (31.6-35.5); Mean Corpuscular Hemoglobin 33.6 pg (28.0-33.3); Mean Corpuscular Volume 96.3 fL (83.0-100.0); Mean Platelet Volume 8.3 fL (9.4-12.4); Monocytes # 0.7 K/mcL (0.0-1.3); Monocytes % 12.3 %; Neutrophils # 3.4 K/mcL (1.6-8.9); Platelet Count 181 K/mcL (140-400); Red Blood Count 4.34 M/mcL (4.19-5.50); Red Cell Distribution Width 12.7 % (11.5-14.5); Segmented Neutrophils % 58.4 %; White Blood Count 5.9 K/mcL (4.3-11.1)
[2018-10-01] MEDS ORDERED: Thiamine (B-1) 100 MG TABLET PO STA (21:08)
[2018-10-01] MEDS ORDERED: Multivit/Ca/Min/Fe/FA 1 TAB TABLET PO STA (21:08)
[2018-10-02] MEDS ORDERED: Naloxone 0.4 MG/ML INJ IVP PRN (01:15)
[2018-10-02] MEDS: Ondansetron 4 MG/2 ML VIAL IVP PRN (01:29)
[2018-10-02] MEDS: 0.9 % Sodium Chloride 1,000 ML IVC SCH ×2 (01:33→09:42)
[2018-10-02] MEDS ORDERED: *HR* LORazepam 2 MG/ML VIAL IVP PRN ×2 (01:52)
[2018-10-02] MEDS: *HR* LORazepam 2 MG/ML VIAL IVP PRN ×2 (02:14→23:32)
[2018-10-02 05:51] LABS: Hematocrit 35.7 % (37.5-50.1); Mean Corpuscular HGB Conc 34.5 g/dL (31.6-35.5); Mean Corpuscular Hemoglobin 34.5 pg (28.0-33.3); Mean Platelet Volume 8.3 fL (9.4-12.4); Platelet Count 154 K/mcL (140-400); Red Blood Count 3.57 M/mcL (4.19-5.50); Red Cell Distribution Width 13.1 % (11.5-14.5); White Blood Count 3.8 K/mcL (4.3-11.1)
[2018-10-02 05:54] LABS: Hemoglobin 12.3 g/dL (12.9-16.9)
[2018-10-02] MEDS: Pantoprazole 40 MG VIAL IVP SCH (05:59)
[2018-10-02 06:11] LABS: Alanine Aminotransferase 135 Units/L (7-52); Albumin 4.4 g/dL (3.5-5.7); Albumin/Globulin Ratio 1.5 (1.1-2.2); Alkaline Phosphatase 59 Units/L (34-104); Aspartate Amino Transferase 76 Units/L (13-39); BUN/Creatinine Ratio 15 (6-26); Bilirubin,Direct 0.3 mg/dL (0.0-0.2); Bilirubin,Indirect 1.3 mg/dL (0.0-1.2); Bilirubin,Total 1.6 mg/dL (0.3-1.0); Blood Urea Nitrogen 13 mg/dL (6-20); Calcium 9.1 mg/dL (8.6-10.3); Carbon Dioxide 23 mEq/L (23-29); Chloride 98 mEq/L (98-107); Globulin 2.9 g/dL (2.4-3.5); Glucose 78 mg/dL (70-105); Magnesium 1.5 mg/dL (1.6-2.6); Osmolality,Calculated 285 (280-300); Phosphorous 4.1 mg/dL (2.7-4.5); Potassium 4.1 mEq/L (3.5-5.1); Sodium 138 mEq/L (136-145); Total Protein 7.3 g/dL (6.4-8.9); eGFR For African Americans > 60 (> 60); eGFR For Non-African Americans > 60 (> 60)
[2018-10-02] MEDS: *HR* Heparin 5,000 UNIT/ML VIAL SQ SCH ×2 (15:17→21:02)
[2018-10-02] MEDS: Thiamine (B-1) 100 MG, Folic Acid 1 MG, MVI, adult with vitamin K 10 ML in 0.9 % Sodi... IVPB SCH (17:47)
[2018-10-03 02:44] LABS: Basophils % 0.7 %; Eosinophils % 0.5 %; Hematocrit 34.7 % (37.5-50.1); Hemoglobin 11.6 g/dL (12.9-16.9); Immature Granulocytes % 0.2 % (0-4); Lymphocytes # 1.7 K/mcL (0.6-4.6); Lymphocytes % 42.7 %; Mean Corpuscular HGB Conc 33.4 g/dL (31.6-35.5); Mean Corpuscular Hemoglobin 34.1 pg (28.0-33.3); Mean Corpuscular Volume 102.1 fL (83.0-100.0); Mean Platelet Volume 9.1 fL (9.4-12.4); Monocytes # 0.6 K/mcL (0.0-1.3); Monocytes % 14.9 %; Neutrophils # 1.7 K/mcL (1.6-8.9); Platelet Count 136 K/mcL (140-400); Red Cell Distribution Width 12.8 % (11.5-14.5)
[2018-10-03 03:17] LABS: Immature Reticulocyte % 15.5 % (11.0-38.0); Retculocyte # 0.16 M/mcL (0.05-0.10); Reticulocyte % 2.4 % (1.6-2.8)
[2018-10-03 03:22] LABS: % Iron Saturation 96 % (20-55); Alanine Aminotransferase 91 Units/L (7-52); Albumin 3.8 g/dL (3.5-5.7); Albumin/Globulin Ratio 1.5 (1.1-2.2); Alkaline Phosphatase 43 Units/L (34-104); Aspartate Amino Transferase 51 Units/L (13-39); BUN/Creatinine Ratio 14 (6-26); Bilirubin,Total 2.9 mg/dL (0.3-1.0); Blood Urea Nitrogen 14 mg/dL (6-20); Calcium 8.9 mg/dL (8.6-10.3); Carbon Dioxide 23 mEq/L (23-29); Chloride 98 mEq/L (98-107); Ferritin 389 ng/mL (20-250); Globulin 2.6 g/dL (2.4-3.5); Glucose 91 mg/dL (70-105); Iron 260 mcg/dL (65-175); Magnesium 1.9 mg/dL (1.6-2.6); Osmolality,Calculated 274 (280-300); Phosphorous 1.5 mg/dL (2.7-4.5); Potassium 3.6 mEq/L (3.5-5.1); Sodium 132 mEq/L (136-145); Total Protein 6.4 g/dL (6.4-8.9); Transferrin 193 mg/dL (203-362); eGFR For African Americans > 60 (> 60); eGFR For Non-African Americans > 60 (> 60)
[2018-10-03] MEDS: *HR* Heparin 5,000 UNIT/ML VIAL SQ SCH ×3 (05:25→20:39)
[2018-10-03] MEDS: Pantoprazole 40 MG VIAL IVP SCH ×2 (05:25→17:00)
[2018-10-03 09:57] LABS: Hematocrit 37.4 % (37.5-50.1); Hemoglobin 12.5 g/dL (12.9-16.9)
[2018-10-03] MEDS ORDERED: Melatonin 3 MG TABLET PO PRN (14:10)
[2018-10-03] MEDS: Ondansetron 4 MG/2 ML VIAL IVP PRN ×2 (14:13→22:03)
[2018-10-03 14:51] LABS: Hemoglobin 12.8 g/dL (12.9-16.9)
[2018-10-03] MEDS: Thiamine (B-1) 100 MG, Folic Acid 1 MG, MVI, adult with vitamin K 10 ML in 0.9 % Sodi... IVPB SCH (17:00)
[2018-10-03] MEDS: *HR* LORazepam 2 MG/ML VIAL IVP PRN ×2 (17:52→22:03)
[2018-10-03] MEDS: *HR* Promethazine 25 MG/ML VIAL IVP PRN (19:46)
[2018-10-03 21:02] LABS: Hematocrit 39.4 % (37.5-50.1); Hemoglobin 13.3 g/dL (12.9-16.9)
[2018-10-04] MEDS: *HR* Promethazine 25 MG/ML VIAL IVP PRN (01:11)
[2018-10-04 02:40] LABS: Magnesium 1.8 mg/dL (1.6-2.6); Phosphorous 2.2 mg/dL (2.7-4.5)
[2018-10-04 02:41] LABS: Alanine Aminotransferase 85 Units/L (7-52); Albumin 4.1 g/dL (3.5-5.7); Albumin/Globulin Ratio 1.5 (1.1-2.2); Alkaline Phosphatase 51 Units/L (34-104); Aspartate Amino Transferase 52 Units/L (13-39); BUN/Creatinine Ratio 10 (6-26); Bilirubin,Total 1.7 mg/dL (0.3-1.0); Blood Urea Nitrogen 10 mg/dL (6-20); Calcium 9.7 mg/dL (8.6-10.3); Carbon Dioxide 27 mEq/L (23-29); Chloride 98 mEq/L (98-107); Globulin 2.7 g/dL (2.4-3.5); Glucose 91 mg/dL (70-105); Osmolality,Calculated 277 (280-300); Potassium 3.7 mEq/L (3.5-5.1); Sodium 134 mEq/L (136-145); Total Protein 6.8 g/dL (6.4-8.9); eGFR For African Americans > 60 (> 60); eGFR For Non-African Americans > 60 (> 60)
[2018-10-04 02:54] LABS: Basophils % 0.5 %; Hematocrit 33.5 % (37.5-50.1); Immature Granulocytes % 0.2 % (0-4); Lymphocytes # 1.2 K/mcL (0.6-4.6); Lymphocytes % 26.9 %; Mean Corpuscular HGB Conc 34.3 g/dL (31.6-35.5); Mean Corpuscular Hemoglobin 34.2 pg (28.0-33.3); Mean Corpuscular Volume 99.7 fL (83.0-100.0); Mean Platelet Volume 9.3 fL (9.4-12.4); Monocytes # 0.5 K/mcL (0.0-1.3); Monocytes % 10.8 %; Neutrophils # 2.6 K/mcL (1.6-8.9); Platelet Count 143 K/mcL (140-400); Red Blood Count 3.36 M/mcL (4.19-5.50); Red Cell Distribution Width 12.2 % (11.5-14.5); Segmented Neutrophils % 61.6 %; White Blood Count 4.3 K/mcL (4.3-11.1)
[2018-10-04 02:56] LABS: Hemoglobin 11.5 g/dL (12.9-16.9)
[2018-10-04] MEDS: *HR* Heparin 5,000 UNIT/ML VIAL SQ SCH (05:06)
[2018-10-04] MEDS: Pantoprazole 40 MG VIAL IVP SCH (05:06)
[2018-10-04 07:18] VITALS: BP 123/80
[2018-10-04] MEDS ORDERED: NON-FORMULARY MEDICATION 1 EACH EACH (Esomeprazole Magnesium [Nexium] 20 MG) PO SCH (09:00)
[2018-10-04] MEDS ORDERED: Folic Acid 1 MG TABLET PO SCH (09:00)
[2018-10-04] MEDS ORDERED: Thiamine (B-1) 100 MG TABLET PO SCH (09:00)
[2018-10-04 09:05] LABS: Hematocrit 34.6 % (37.5-50.1); Hemoglobin 11.8 g/dL (12.9-16.9)
[2018-10-05] MEDS ORDERED: Thiamine (B-1) 100 MG TABLET PO SCH (09:00)
[2018-10-05] MEDS ORDERED: Folic Acid 1 MG TABLET PO SCH (09:00)
[2018-10-05] MEDS ORDERED: Vitamin B Complex/Vit C/Vit E 1 EACH TABLET PO SCH (09:00)
== END 2018-10-04 11:14 | disposition home or self-care (01) ==
LOC: 3BNU 19:13 → EMEROOARM 19:13 → SUATTDRO 22:28 → 3BNU 23:38
PROVIDERS: ADMIT Internal Medicine; ATTEND Internal Medicine

== ENCOUNTER 2018-11-13 11:36 | Observation (INO) ==
[2018-11-13] MEDS ORDERED: Ondansetron 4 MG/2 ML VIAL IVP ONE (11:51)
[2018-11-13] MEDS: 0.9 % Sodium Chloride 1,000 ML IVC SCH ×2 (12:08→13:31)
[2018-11-13] MEDS ORDERED: diazePAM 5 MG TABLET PO ONE (12:10)
[2018-11-13 12:14] LABS: Basophils # 0.1 K/mcL (0.0-0.2); Basophils % 0.7 %; Hematocrit 42.4 % (37.5-50.1); Hemoglobin 14.5 g/dL (12.9-16.9); Immature Granulocytes % 0.4 % (0-4); Lymphocytes # 0.8 K/mcL (0.6-4.6); Lymphocytes % 11.3 %; Mean Corpuscular HGB Conc 34.2 g/dL (31.6-35.5); Mean Corpuscular Hemoglobin 33.6 pg (28.0-33.3); Mean Corpuscular Volume 98.1 fL (83.0-100.0); Mean Platelet Volume 8.1 fL (9.4-12.4); Monocytes # 0.9 K/mcL (0.0-1.3); Monocytes % 13.1 %; Neutrophils # 5.2 K/mcL (1.6-8.9); Platelet Count 220 K/mcL (140-400); Red Blood Count 4.32 M/mcL (4.19-5.50); Red Cell Distribution Width 13.6 % (11.5-14.5); Segmented Neutrophils % 74.5 %
--- NOTE | 2018-11-13 12:15 | Emergency Department Note ---
Disposition Clinical Impression: Alcohol withdrawal Qualifiers: Complication of substance-induced condition: uncomplicated Qualified Code(s): F10.230 - Alcohol dependence with withdrawal, uncomplicated Disposition: Admitted As Inpatient Condition: Fair Time of Disposition: 15:32 General Adult HPI - General Chief complaint: ED General Medical Stated complaint: alcohol withdrawal Time Seen by Provider: 11/13/18 11:42 Nursing Notes Reviewed: Yes Vital Signs Reviewed: Yes - History of Present Illness HPI Narrative: Presents by saying that he is in alcohol withdrawal. He does not drink, 24 hours, does have some generalized tremulousness as well as insomnia and is drinking 15 or 20 small bottles of liquor per day. Increased during the past week because he has been on medication. He has been to AA in the past but is not currently attending meetings. Does have nausea and vomiting associated. Red material in the vomit but thinks is may be because of a red pill he took for nausea when she got at the pharmacy. He denies any blood in the urine. To have a hard stool this morning and thought there might have been some blood surrounding the stool and some streaks because of the hard stool but he is not sure. Some generalized abdominal discomfort which she thinks is from the vomiting but no other pain. Social history: Nonsmoker, alcohol, no drugs except for occasional marijuana - Related Data Home Medications Medication Instructions Recorded Confirmed Lisinopril-HCTZ 20-12.5 [Prinzide 1 tab PO DAILY 08/17/18 11/13/18 20-12.5] Previous Rx's Medication Instructions Recorded Esomeprazole Magnesium [Nexium] 40 mg PO BID 30 Days #60 capsule. 10/04/18 Allergies Allergy/AdvReac Type Severity Reaction Status Date / Time No Known Allergies Allergy Verified 11/02/18 02:16 All systems ED: reviewed and negative except as stated. Past Medical History - Past Medical History Medical history: Reports: hypertension Psychiatric history: Reports: anxiety - Social History Smoking Status: Never smoker Smokeless Tobacco Status: No Alcohol use: Reports: heavy, recent Drug use: Reports: marijuana Physical Exam CONSTITUTIONAL: Alert and oriented X3, thin, up pacing around the room, seems anxious HEAD: Normocephalic; atraumatic. EYES: PERRL, no scleral icterus. NOSE: The nose is normal in appearance without rhinorrhea RESP: Normal chest excursion with respiration; breath sounds clear and equal bilaterally; no wheezes, rhonchi, or rales CARD: Regular rhythm, without murmurs, rub or gallop ABD: Non-distended; non-tender, soft,without rigidity, rebound or guarding SKIN: Normal for age and race; warm and dry; no apparent lesions Course Vital Signs Pulse Rate 151 11/13/18 11:37 Respiratory Rate 22 11/13/18 11:37 Blood Pressure 148/87 11/13/18 11:37 O2 Sat by Pulse Oximetry 96 11/13/18 11:37 Temperature 99.0 F 11/13/18 18:34 Pulse Rate 90 11/13/18 18:34 Respiratory Rate 15 11/13/18 18:34 Blood Pressure 119/79 11/13/18 18:34 O2 Sat by Pulse Oximetry 98 11/13/18 18:34 Oxygen Delivery Oxygen Delivery Room Air Medical Decision Making - MDM Narrative Medical decision making narrative: Patient's symptoms consistent with alcohol withdrawal and he is given IV fluids, IV Zofran, banana bag, by mouth Valium 10 mg, labs are pending including LFTs and some toxicology screen. 1216 I did review the patient's test results with out acute abnormality and the patient's alcohol level is low and I did recheck on him and he still has generalized tremors but these have improved. His heart rate is improved and is currently 110. I did speak with Dr. Martinez from [facility] who accepts the patient for admission for acute alcohol withdrawal. He has received an additional benzodiazepine Ativan 1 mg IV 1532 Gastric occult is negative for blood and the red coloration emesis was likely from the antinausea medicine he bought [id number] at the pharmacy 1842 - Medical Records Medical records reviewed: Yes I reviewed the patient's medical records. - Lab Data Lab results reviewed: Yes I reviewed the patient's lab results. Result diagrams: 11/13/18 12:02 11/13/18 12:02 Lab Results 11/13/18 11/13/18 11/13/18 Range/Units 12:02 12:02 12:02 WBC 7.0 (4.3-11.1) K/mcL RBC 4.32 (4.19-5.50) M/mcL Hgb 14.5 (12.9-16.9) g/dL Hct 42.4 (37.5-50.1) % MCV 98.1 (83.0-100.0) fL MCH 33.6 H (28.0-33.3) pg MCHC 34.2 (31.6-35.5) g/dL RDW 13.6 (11.5-14.5) % Plt Count 220 (140-400) K/mcL MPV 8.1 L (9.4-12.4) fL Immature Gran % 0.4 (0-4) % Seg Neutrophils % 74.5 % Lymphocytes % 11.3 % Monocytes % 13.1 % Eosinophils % 0.0 % Basophils % 0.7 % Neutrophils # 5.2 (1.6-8.9) K/mcL Lymphocytes # 0.8 (0.6-4.6) K/mcL Monocytes # 0.9 (0.0-1.3) K/mcL Eosinophils # 0.0 (0.0-0.6) K/mcL Basophils # 0.1 (0.0-0.2) K/mcL Sodium 140 (136-145) mEq/L Potassium 4.3 (3.5-5.1) mEq/L Chloride 95 L (98-107) mEq/L Carbon Dioxide 20 L (23-29) mEq/L BUN 15 (6-20) mg/dL Creatinine 1.07 (0.70-1.30) mg/dL Est GFR ( Amer) > 60 (> 60) Est GFR (Non-Af Amer) > 60 (> 60) BUN/Creatinine Ratio 14 (6-26) Glucose 132 H (70-105) mg/dL Calculated Osmolality 293 (280-300) Calcium 10.7 H (8.6-10.3) mg/dL Total Bilirubin 1.7 H (0.3-1.0) mg/dL Direct Bilirubin 0.3 H (0.0-0.2) mg/dL Indirect Bilirubin 1.4 H (0.0-1.2) mg/dL AST 45 H (13-39) Units/L ALT 61 H (7-52) Units/L Alkaline Phosphatase 55 (34-104) Units/L Ammonia (16-53) mcmol/L Serum Total Protein 8.3 (6.4-8.9) g/dL Albumin 5.1 (3.5-5.7) g/dL Globulin 3.2 (2.4-3.5) g/dL Albumin/Globulin Ratio 1.6 (1.1-2.2) Lipase 25 (11-82) Units/L Salicylates (15.0-30.0) mg/dL Urine Opiates Screen (Oakfyi=760) ng/mL Ur Buprenorphine Scrn (Cutoff=5) ng/mL Acetaminophen (10-20) mcg/mL Ur Barbiturates Screen (Qishaw=109) ng/mL Ur Phencyclidine Scrn (Cutoff=25) ng/mL Ur Amphetamines Screen (Oyjlnd=2918) ng/mL U Benzodiazepines Scrn (Wmsrlb=529) ng/mL Urine Cocaine Screen (Cutoff= 300) ng/mL U Marijuana (THC) Screen (Cutoff = 50) ng/mL Ur Drug Screen Interp Ethyl Alcohol 58 H (Less than 10) mg/dL 11/13/18 11/13/18 11/13/18 Range/Units 12:36 12:36 12:36 WBC (4.3-11.1) K/mcL RBC (4.19-5.50) M/mcL Hgb (12.9-16.9) g/dL Hct (37.5-50.1) % MCV (83.0-100.0) fL MCH (28.0-33.3) pg MCHC (31.6-35.5) g/dL RDW (11.5-14.5) % Plt Count (140-400) K/mcL MPV (9.4-12.4) fL Immature Gran % (0-4) % Seg Neutrophils % % Lymphocytes % % Monocytes % % Eosinophils % % Basophils % % Neutrophils # (1.6-8.9) K/mcL Lymphocytes # (0.6-4.6) K/mcL Monocytes # (0.0-1.3) K/mcL Eosinophils # (0.0-0.6) K/mcL Basophils # (0.0-0.2) K/mcL Sodium (136-145) mEq/L Potassium (3.5-5.1) mEq/L Chloride (98-107) mEq/L Carbon Dioxide (23-29) mEq/L BUN (6-20) mg/dL Creatinine (0.70-1.30) mg/dL Est GFR ( Amer) (> 60) Est GFR (Non-Af Amer) (> 60) BUN/Creatinine Ratio (6-26) Glucose (70-105) mg/dL Calculated Osmolality (280-300) Calcium (8.6-10.3) mg/dL Total Bilirubin (0.3-1.0) mg/dL Direct Bilirubin (0.0-0.2) mg/dL Indirect Bilirubin (0.0-1.2) mg/dL AST (13-39) Units/L ALT (7-52) Units/L Alkaline Phosphatase (34-104) Units/L Ammonia 32 (16-53) mcmol/L Serum Total Protein (6.4-8.9) g/dL Albumin (3.5-5.7) g/dL Globulin (2.4-3.5) g/dL Albumin/Globulin Ratio (1.1-2.2) Lipase (11-82) Units/L Salicylates < 2.5 L (15.0-30.0) mg/dL Urine Opiates Screen (Nyurxs=885) ng/mL Ur Buprenorphine Scrn (Cutoff=5) ng/mL Acetaminophen < 10 L (10-20) mcg/mL Ur Barbiturates Screen (Dztbof=157) ng/mL Ur Phencyclidine Scrn (Cutoff=25) ng/mL Ur Amphetamines Screen (Adbgrr=6127) ng/mL U Benzodiazepines Scrn (Nulsmb=953) ng/mL Urine Cocaine Screen (Cutoff= 300) ng/mL U Marijuana (THC) Screen (Cutoff = 50) ng/mL Ur Drug Screen Interp Ethyl Alcohol (Less than 10) mg/dL 11/13/18 Range/Units 13:20 WBC (4.3-11.1) K/mcL RBC (4.19-5.50) M/mcL Hgb (12.9-16.9) g/dL Hct (37.5-50.1) % MCV (83.0-100.0) fL MCH (28.0-33.3) pg MCHC (31.6-35.5) g/dL RDW (11.5-14.5) % Plt Count (140-400) K/mcL MPV (9.4-12.4) fL Immature Gran % (0-4) % Seg Neutrophils % % Lymphocytes % % Monocytes % % Eosinophils % % Basophils % % Neutrophils # (1.6-8.9) K/mcL Lymphocytes # (0.6-4.6) K/mcL Monocytes # (0.0-1.3) K/mcL Eosinophils # (0.0-0.6) K/mcL Basophils # (0.0-0.2) K/mcL Sodium (136-145) mEq/L Potassium (3.5-5.1) mEq/L Chloride (98-107) mEq/L Carbon Dioxide (23-29) mEq/L BUN (6-20) mg/dL Creatinine (0.70-1.30) mg/dL Est GFR ( Amer) (> 60) Est GFR (Non-Af Amer) (> 60) BUN/Creatinine Ratio (6-26) Glucose (70-105) mg/dL Calculated Osmolality (280-300) Calcium (8.6-10.3) mg/dL Total Bilirubin (0.3-1.0) mg/dL Direct Bilirubin (0.0-0.2) mg/dL Indirect Bilirubin (0.0-1.2) mg/dL AST (13-39) Units/L ALT (7-52) Units/L Alkaline Phosphatase (34-104) Units/L Ammonia (16-53) mcmol/L Serum Total Protein (6.4-8.9) g/dL Albumin (3.5-5.7) g/dL Globulin (2.4-3.5) g/dL Albumin/Globulin Ratio (1.1-2.2) Lipase (11-82) Units/L Salicylates (15.0-30.0) mg/dL Urine Opiates Screen Negative (Ahksug=745) ng/mL Ur Buprenorphine Scrn Negative (Cutoff=5) ng/mL Acetaminophen (10-20) mcg/mL Ur Barbiturates Screen Negative (Bxiixr=809) ng/mL Ur Phencyclidine Scrn Negative (Cutoff=25) ng/mL Ur Amphetamines Screen Negative (Ndzvod=5510) ng/mL U Benzodiazepines Scrn Negative (Cxfmxg=856) ng/mL Urine Cocaine Screen Negative (Cutoff= 300) ng/mL U Marijuana (THC) Screen Positive H (Cutoff = 50) ng/mL Ur Drug Screen Interp See Below Ethyl Alcohol (Less than 10) mg/dL Critical Care Time Critical Care Time: No
[2018-11-13 12:31] LABS: Albumin 5.1 g/dL (3.5-5.7); Albumin/Globulin Ratio 1.6 (1.1-2.2); Bilirubin,Direct 0.3 mg/dL (0.0-0.2); Bilirubin,Indirect 1.4 mg/dL (0.0-1.2); Bilirubin,Total 1.7 mg/dL (0.3-1.0); Globulin 3.2 g/dL (2.4-3.5); Total Protein 8.3 g/dL (6.4-8.9)
[2018-11-13 12:32] LABS: BUN/Creatinine Ratio 14 (6-26); Blood Urea Nitrogen 15 mg/dL (6-20); Calcium 10.7 mg/dL (8.6-10.3); Carbon Dioxide 20 mEq/L (23-29); Chloride 95 mEq/L (98-107); Ethanol 58 mg/dL (Less than 10); Glucose 132 mg/dL (70-105); Lipase 25 Units/L (11-82); Osmolality,Calculated 293 (280-300); Potassium 4.3 mEq/L (3.5-5.1); Sodium 140 mEq/L (136-145); eGFR For African Americans > 60 (> 60); eGFR For Non-African Americans > 60 (> 60)
[2018-11-13] MEDS ORDERED: *HR* LORazepam 2 MG/ML VIAL IVP ONE ×2 (13:04→15:53)
[2018-11-13 13:47] LABS: Amphetamine Screen,Urine Negative ng/mL (Cutoff=1000); Barbiturate Screen,Urine Negative ng/mL (Cutoff=200); Benzodiazepines Screen,Urine Negative ng/mL (Cutoff=200); Cannabinoid Screen,Urine Positive ng/mL (Cutoff = 50); Cocaine Screen,Urine Negative ng/mL (Cutoff= 300); Opiate Screen,Urine Negative ng/mL (Cutoff=300); Phencyclidine Screen,Urine Negative ng/mL (Cutoff=25)
--- NOTE | 2018-11-13 15:47 | Internal Med History&Physical ---
Date of Encounter: 11/13/18 Time of Encounter: 15:47 Internal Medicine - H&P: HPI Chief complaint: vomiting Admitted From: Home Plans for Post Hospital Care: Home History of present illness: Mr. Manuel is a 38 year old male past medical history of GERD, alcoholism, hypertension, anxiety came in with complain of nausea and vomiting dizziness and dehydration. It is not has been drinking heavily over the past 1 week with about 15-20 small bottles of liquor per day. His last drink was last night around 8 and since about 10 to 11:00 he has been vomiting and is not able to keep anything down. He had sort of short spans of time when he was able to be off alcohol before. He took some nausea pills which was red in color and reported red material involvement denied any velvet blood. Denies any abdominal pain except usual epigastric burning pain which he has from reflux. He admits to having tremors, palpitations, lightheadedness and dizziness. He reports of constipation. He is denying any chest pain or difficulty breathing, fevers, chills or bladder complaints. He denies any other drug abuse. Occasionally smokes marijuana. Denies any allergies. Patient was evaluated in ER and was found to have C. difficile 20, bilirubin of 1.7, mildly elevated AST and ALT. Alcohol level of 58 was found and U tox positive for marijuana. Denies any suicidal ideation. He received a dose of lorazepam, Zofran, diazepam and 1 L of normal saline. Admission was requested for occult withdrawal. Past Med Surg Social Fam HX - Past Medical History Medical history: hypertension Additional medical history: alcoholism Psychiatric history: anxiety - Past Surgical History Surgical History: no surgical history - Social History Smoking Status: Never smoker Smokeless Tobacco Status: No Alcohol use: heavy, recent Drug use: marijuana - Family History Paternal Grandfather Hx Family Cancer: Yes (Lung, heart) Internal Medicine - H&P: Meds Lisinopril-HCTZ 20-12.5 [Prinzide 20-12.5] 1 tab PO DAILY 08/17/18 [History] Esomeprazole Magnesium [Nexium] 40 mg PO BID 30 Days #60 capsule. 10/04/18 [Rx] Allergy/AdvReac Type Severity Reaction Status Date / Time No Known Allergies Allergy Verified 11/02/18 02:16 All Systems PM: A 10-system review of systems was performed and is negative for pertinent findings except as documented above in the HPI. - Constitutional Vitals: Temp Pulse Resp BP Pulse Ox 97.8 F 98 18 152/94 100 11/13/18 12:23 11/13/18 15:38 11/13/18 12:23 11/13/18 15:38 11/13/18 15:38 Exam: Constitutional: Vitals as noted. Conversant. shaking Eyes : Sclera white, conjunctiva clear, no lid lag, PEARLA. ENT : Grossly normal hearing. Moist mucus membranes. Respiratory : Clear to auscultation bilaterally. No accessory muscle use, rales, rhonchi or wheezes Cardiovascular : tachycardic, +S1, +S2. no murmur, gallop, rubs. No chest wall tenderness GI/Abdominal : Soft, Non-tender, Non-distended, normal bowel sounds, no peritoneal signs. no orgenomegaly or mass appreciated. no hernia. Musculoskeletal: no deformity noted. no edema, warm extremities, pulses palpable and symmetrical in UE/LE. no calf tenderness. Neurological: AO X3, CN II-XII grossly intact, grossly normal motor and sensory exam. toungue fasciculation and tremors noted Skin: No skin rash, lesions or ulcers noted. Internal Med - H&P Results - Labs CBC & Chem 7: 11/13/18 12:02 11/13/18 12:02 Labs: Short CBC 11/13/18 Range/Units 12:02 WBC 7.0 (4.3-11.1) K/mcL Hgb 14.5 (12.9-16.9) g/dL Hct 42.4 (37.5-50.1) % Plt Count 220 (140-400) K/mcL Neutrophils # 5.2 (1.6-8.9) K/mcL BMP 11/13/18 12:02 Sodium 140 Potassium 4.3 Chloride 95 L Carbon Dioxide 20 L BUN 15 Creatinine 1.07 Glucose 132 H Calcium 10.7 H Liver Function 11/13/18 Range/Units 12:02 Total Bilirubin 1.7 H (0.3-1.0) mg/dL Direct Bilirubin 0.3 H (0.0-0.2) mg/dL AST 45 H (13-39) Units/L ALT 61 H (7-52) Units/L Alkaline Phosphatase 55 (34-104) Units/L Albumin 5.1 (3.5-5.7) g/dL - Assessment and Plan (1) Alcohol withdrawal Current Visit: Yes Status: Acute Assessment and plan: We will keep patient on telemetry and CIWA protocol with Ativan Support patient additionally with banana bag and hold multivitamin starting tomorrow. We will consult social insurance adviser to provide resources for alcohol rehabilitation Diskus about long-term effects of alcohol abuse. Qualifiers: Complication of substance-induced condition: uncomplicated Qualified Code(s): F10.230 - Alcohol dependence with withdrawal, uncomplicated (2) Transaminitis Current Visit: Yes Status: Acute Assessment and plan: Likely secondary to alcohol abuse. No further investigation needed. (3) DVT prophylaxis Current Visit: No Status: Acute Assessment and plan: Heparin subcutaneous (4) Nausea and vomiting Current Visit: No Status: Acute Assessment and plan: Likely secondary to alcohol withdrawal. We will use when necessary Zofran IV for symptomatic relief. Qualifiers: Vomiting type: unspecified Vomiting Intractability: unspecified Qualified Code(s): R11.2 - Nausea with vomiting, unspecified (5) Total bilirubin, elevated Current Visit: No Status: Acute Assessment and plan: Likely secondary to alcohol abuse . patient on right upper quadrant pain . Monitor for now. (6) GERD (gastroesophageal reflux disease) Current Visit: No Status: Chronic Assessment and plan: Continue home PPI Qualifiers: Esophagitis presence: without esophagitis Qualified Code(s): K21.9 - Gastro-esophageal reflux disease without esophagitis (7) HTN (hypertension) Current Visit: Yes Status: Acute Assessment and plan: Continue home antihypertensives Qualifiers: Hypertension type: essential hypertension Qualified Code(s): I10 - Essential (primary) hypertension - Time Spent With Patient Total time spent is greater than 50% in coordination of care (as documented) at patient's floor/unit and/or counseling patient:
[2018-11-13] MEDS ORDERED: *HR* LORazepam 1 MG TABLET PO SCH (16:15)
[2018-11-13] MEDS ORDERED: Ondansetron 4 MG/2 ML VIAL IVP PRN (16:17)
[2018-11-13] MEDS ORDERED: *HR* LORazepam 2 MG/ML VIAL IVP PRN ×2 (16:32→16:41)
[2018-11-13] MEDS: *HR* LORazepam 2 MG/ML VIAL IVP PRN ×2 (17:59→22:14)
[2018-11-13] MEDS ORDERED: Thiamine (B-1) 100 MG, Folic Acid 1 MG, MVI, adult with vitamin K 10 ML in 0.9 % Sodi... IVPB SCH (18:00)
[2018-11-13] MEDS: *HR* Heparin 5,000 UNIT/ML VIAL SQ SCH (21:09)
[2018-11-14 05:32] LABS: Alanine Aminotransferase 39 Units/L (7-52); Albumin 3.6 g/dL (3.5-5.7); Albumin/Globulin Ratio 1.6 (1.1-2.2); Alkaline Phosphatase 38 Units/L (34-104); Aspartate Amino Transferase 31 Units/L (13-39); BUN/Creatinine Ratio 12 (6-26); Blood Urea Nitrogen 12 mg/dL (6-20); Calcium 8.4 mg/dL (8.6-10.3); Carbon Dioxide 23 mEq/L (23-29); Chloride 100 mEq/L (98-107); Globulin 2.3 g/dL (2.4-3.5); Glucose 76 mg/dL (70-105); Magnesium 1.6 mg/dL (1.6-2.6); Osmolality,Calculated 279 (280-300); Potassium 3.5 mEq/L (3.5-5.1); Sodium 135 mEq/L (136-145); Total Protein 5.9 g/dL (6.4-8.9); eGFR For African Americans > 60 (> 60); eGFR For Non-African Americans > 60 (> 60)
[2018-11-14] MEDS: *HR* Heparin 5,000 UNIT/ML VIAL SQ SCH ×2 (06:06→13:07)
[2018-11-14] MEDS ORDERED: Thiamine (B-1) 100 MG TABLET PO SCH (09:00)
[2018-11-14] MEDS ORDERED: Vitamin B Complex/Vit C/Vit E 1 EACH TABLET PO SCH (09:00)
[2018-11-14] MEDS ORDERED: Lisinopril-HCTZ 20-12.5mg TABLET PO SCH (09:00)
[2018-11-14] MEDS ORDERED: Folic Acid 1 MG TABLET PO SCH (09:00)
[2018-11-14 10:55] VITALS: BP 105/62
--- NOTE | 2018-11-14 13:49 | Discharge Summary ---
- NOTES TO OUTPATIENT PROVIDER Notes to Outpatient Provider: f/u with PCP in one week. Please quit drinking alcohol. Please f/u at alchol rehab walk in clinic Date of Encounter: 11/14/18 Time of Encounter: 13:44 - Discharge Diagnosis (1) Alcohol withdrawal Priority: Primary Status: Acute Qualifiers: Complication of substance-induced condition: uncomplicated Qualified Code(s): F10.230 - Alcohol dependence with withdrawal, uncomplicated (2) Total bilirubin, elevated Priority: Primary Status: Acute (3) Transaminitis Priority: Primary Status: Acute (4) Nausea and vomiting Priority: Primary Status: Acute Qualifiers: Vomiting type: unspecified Vomiting Intractability: unspecified Qualified Code(s): R11.2 - Nausea with vomiting, unspecified (5) DVT prophylaxis Priority: Secondary Status: Acute (6) GERD (gastroesophageal reflux disease) Priority: Secondary Status: Chronic Qualifiers: Esophagitis presence: without esophagitis Qualified Code(s): K21.9 - Gastro-esophageal reflux disease without esophagitis (7) HTN (hypertension) Priority: Secondary Status: Acute Qualifiers: Hypertension type: essential hypertension Qualified Code(s): I10 - Essential (primary) hypertension Hospital course: Mr. Manuel is a 38 year old male past medical history of GERD, alcoholism, hypertension and anxiety came in with complain of nausea and vomiting dizziness and dehydration. He has been drinking heavily over the past 1 week with about 15-20 small bottles of beer per day. His last drink was Wednesday night around 8 and since about 10 to 11:00 he has been vomiting and is not able to keep anything down. He was admitted in the hospital and placed him on neck band operator. He was started on aggressive IV hydration and placed him on CIWA protocol with IV Ativan PRN. Pt stated he is feeling better today and tolerating oral intake well. Pt wanted to go to out pt alcohol rehab clinic. He was scoring only 3 on CIWA scale. So will d/c him home in stable condition today with PO tapering dose of Librium. - Time Spent with Patient Total time spent providing and/or coordinating discharge services: - Discharge Medications Prescriptions: New Folic Acid 1 mg PO DAILY #30 tablet Chlordiazepoxide [Librium] 25 mg PO QID 8 Days #20 capsule Thiamine (B-1) [Vitamin B-1] 100 mg PO DAILY #30 tablet Continued Lisinopril-HCTZ 20-12.5 [Prinzide 20-12.5] 1 tab PO DAILY Esomeprazole Magnesium [Nexium] 40 mg PO BID 30 Days #60 capsule. Home Medications: Lisinopril-HCTZ 20-12.5 [Prinzide 20-12.5] 1 tab PO DAILY 08/17/18 [History] Esomeprazole Magnesium [Nexium] 40 mg PO BID 30 Days #60 capsule. 10/04/18 [Rx] Chlordiazepoxide [Librium] 25 mg PO QID 8 Days #20 capsule 11/14/18 [Rx] Folic Acid 1 mg PO DAILY #30 tablet 11/14/18 [Rx] Thiamine (B-1) [Vitamin B-1] 100 mg PO DAILY #30 tablet 11/14/18 [Rx] Allergies/Adverse Reactions: Allergy/AdvReac Type Severity Reaction Status Date / Time No Known Allergies Allergy Verified 11/02/18 02:16 Date of admission: 11/13/18 15:36 Primary care physician: PCP NONE Consults: 11/13/18 16:08 Consult to Seating And Mobility Technologist [CONS] Routine Reason for Consult: alchohol rehab - Constitutional Vitals: Temp Pulse Resp BP Pulse Ox 98.0 F 99 18 105/62 95 11/14/18 10:53 11/14/18 10:53 11/14/18 10:53 11/14/18 10:53 11/14/18 10:53 General appearance: Present: cooperative, A&O X 3, no acute distress, answers questions appropriately Exam: a - Head Head exam: Present: atraumatic, normal inspection - Neck Neck exam general surgery: Present: supple - Respiratory Respiratory exam: Present: decreased breath sounds. Absent: rales, respiratory distress, rhonchi, wheezes - Cardiovascular Cardiovascular exam: Present: RRR, +S1, +S2. Absent: tachycardia - GI/Abdominal GI/Abdominal exam: Present: normal bowel sounds, soft. Absent: rebound, rigid, tenderness - Extremities Exam Extremities exam: Present: normal inspection. Absent: calf tenderness, pedal edema, tenderness - Back Exam Back exam: Absent: CVA tenderness (L), CVA tenderness (R) - Neurological Exam Neurological exam: Present: alert, oriented X3, strengths equal and symetr throughout. Absent: facial droop, speech deficit - Psychiatric Psychiatric exam: Present: normal affect, normal mood - Skin Skin exam: Absent: rash - Patient Status Disposition: Home, Self-Care Condition: Fair - Discharge Instructions Instructions: Alcohol Withdrawal (DC), Alcohol Dependence (GEN), Alcohol Use Disorder (DC) - Diet and Activity Activity: increase activity as tolerated Diet: low salt diet
== END 2018-11-14 14:57 | disposition home or self-care (01) ==
LOC: EMEROOARM 11:36 → 3BNU 11:36 → SUATTDRO 15:36 → 3BNU 16:27
PROVIDERS: ADMIT Internal Medicine; ATTEND Family Medicine

== ENCOUNTER 2018-11-15 11:40 | Observation (INO) ==
[2018-11-15] MEDS ORDERED: 0.9 % Sodium Chloride 1,000 ML IVC ONE (11:55)
[2018-11-15] MEDS ORDERED: Famotidine 20 MG/2 ML VIAL IVP ONE (11:55)
[2018-11-15] MEDS ORDERED: diazePAM 10 MG/2 ML SYRINGE IVP ONE (11:56)
[2018-11-15] MEDS ORDERED: Ondansetron 4 MG/2 ML VIAL IVP PRN ×2 (11:56→16:05)
[2018-11-15] MEDS ORDERED: Isovue-370 500 ML BOTTLE IVP ONE (11:57)
--- NOTE | 2018-11-15 12:05 | Emergency Department Note ---
Disposition Clinical Impression: Esophagitis, Alcoholism Nausea and vomiting Qualifiers: Vomiting type: unspecified Vomiting Intractability: intractable Qualified Code(s): R11.2 - Nausea with vomiting, unspecified Disposition: Admitted As Inpatient Condition: Fair Forms: ED Satisfaction Letter Time of Disposition: 14:26 Nausea/Vomiting/Diarrhea HPI - General Chief complaint: ED Nausea/Vomiting/Diarrhea Stated complaint: alcohol withdrawal Time Seen by Provider: 11/15/18 11:47 Source: patient Mode of arrival: private vehicle Limitations: no limitations Nursing Notes Reviewed: Yes Vital Signs Reviewed: Yes - History of Present Illness HPI Narrative: Patient presents with upper abdominal pain that is described as "burning." He was recently admitted for acute alcohol withdrawal and was discharged on a proton pump inhibitor and sucralfate which she has been taking but cannot keep down. Other than nausea and nonbloody emesis is only other complaint is upper abdominal pain. He has not had a drink of alcohol in several days. He has no known previous history of pancreatitis to his knowledge Pt Subjective Complaint: nausea, vomiting Onset (ago): hour(s) If pain, Location of pain: epigastric Quality: other (Burning) Consistency: constant Improves with: nothing Worsens with: vomiting - Related Data Home Medications Medication Instructions Recorded Confirmed Lisinopril-HCTZ 20-12.5 [Prinzide 1 tab PO DAILY 08/17/18 11/13/18 20-12.5] Previous Rx's Medication Instructions Recorded Esomeprazole Magnesium [Nexium] 40 mg PO BID 30 Days #60 capsule. 10/04/18 Chlordiazepoxide [Librium] 25 mg PO QID 8 Days #20 capsule 11/14/18 Folic Acid 1 mg PO DAILY #30 tablet 11/14/18 Thiamine (B-1) [Vitamin B-1] 100 mg PO DAILY #30 tablet 11/14/18 Allergies Allergy/AdvReac Type Severity Reaction Status Date / Time No Known Allergies Allergy Verified 11/15/18 11:45 All systems ED: reviewed and negative except as stated. Constitutional: Reports: as per HPI Eyes: Reports: as per HPI ENT ED: Reports: as per HPI Cardiovascular: Reports: as per HPI Respiratory: Reports: sputum production Gastrointestinal: Reports: abdominal pain, nausea, vomiting Genitourinary: Reports: as per HPI Musculoskeletal: Reports: as per HPI Integumentary: Reports: as per HPI Neurological: Reports: as per HPI Psychiatric: Reports: as per HPI Endocrine: Reports: as per HPI Hematological/Lymphatic: Reports: as per HPI Allergic/Immunologic: Reports: as per HPI Past Medical History - Past Medical History Source: old records reviewed Medical history: Reports: hypertension, other (Alcoholism) Surgical history: Reports: no surgical history Psychiatric history: Reports: anxiety - Social History Smoking Status: Never smoker Smokeless Tobacco Status: No Alcohol use: Reports: heavy, recent Drug use: Reports: marijuana Physical Exam Actively vomiting at the time of my entry into the room - General Limitations: no limitations General appearance: alert - Head Head exam: atraumatic - Eye Eye exam: Present: normal appearance - ENT ENT exam: normal exam - Neck Neck exam: Present: normal inspection, full ROM - Chest Chest inspection: Present: normal inspection, symmetric chest wall rise - Respiratory Respiratory exam: Present: normal lung sounds bilaterally - Cardiovascular Cardiovascular exam: Present: tachycardia - Abdominal Exam Abdominal exam: Present: soft, tenderness (Mild tenderness to epigastrium), normal bowel sounds - Rectal Exam Rectal exam: Present: deferred - Extremities Exam Extremities exam: Present: normal inspection - Neurological Exam Neurological exam: Present: alert, oriented X3, CN II-XII intact - Psychiatric Psychiatric exam: Present: normal affect, normal mood - Skin Skin exam: Present: warm, dry, intact Course Course Narrative: Patient presents with upper abdominal pain as well as nausea and vomiting. Alcohol-induced gastritis versus peptic ulcer disease as a primary cons ideration. However, pancreatitis due to alcohol use is also a possibility. Workup to include labs. I am also going to perform a CT scan of his abdomen and pelvis with IV contrast to evaluate for any acute surgical pathology Vital Signs Temperature 98 F 11/15/18 11:43 Pulse Rate 105 11/15/18 11:43 Respiratory Rate 16 11/15/18 11:43 Blood Pressure 137/94 11/15/18 11:43 O2 Sat by Pulse Oximetry 99 11/15/18 11:43 Temperature 98 F 11/15/18 12:07 Pulse Rate 72 11/15/18 12:38 Respiratory Rate 16 11/15/18 12:38 Blood Pressure 135/101 11/15/18 12:38 O2 Sat by Pulse Oximetry 100 11/15/18 12:38 Oxygen Delivery Oxygen Delivery Room Air Nausea/Vomiting/Diarrhea - Medical Records Medical records reviewed: Yes I reviewed the patient's medical records. - Lab Data Lab results reviewed: Yes I reviewed the patient's lab results. Result diagrams: 11/15/18 12:16 11/15/18 12:16 Lab Results 11/15/18 11/15/18 Range/Units 12:16 12:16 WBC 6.8 (4.3-11.1) K/mcL RBC 4.23 (4.19-5.50) M/mcL Hgb 14.0 (12.9-16.9) g/dL Hct 41.6 (37.5-50.1) % MCV 98.3 (83.0-100.0) fL MCH 33.1 (28.0-33.3) pg MCHC 33.7 (31.6-35.5) g/dL RDW 12.7 (11.5-14.5) % Plt Count 139 L (140-400) K/mcL MPV 9.1 L (9.4-12.4) fL Immature Gran % 0.3 (0-4) % Seg Neutrophils % 81.1 % Lymphocytes % 12.3 % Monocytes % 5.9 % Eosinophils % 0.1 % Basophils % 0.3 % Neutrophils # 5.5 (1.6-8.9) K/mcL Lymphocytes # 0.8 (0.6-4.6) K/mcL Monocytes # 0.4 (0.0-1.3) K/mcL Eosinophils # 0.0 (0.0-0.6) K/mcL Basophils # 0.0 (0.0-0.2) K/mcL Sodium 132 L (136-145) mEq/L Potassium 3.4 L (3.5-5.1) mEq/L Chloride 97 L (98-107) mEq/L Carbon Dioxide 24 (23-29) mEq/L BUN 9 (6-20) mg/dL Creatinine 0.87 (0.70-1.30) mg/dL Est GFR ( Amer) > 60 (> 60) Est GFR (Non-Af Amer) > 60 (> 60) BUN/Creatinine Ratio 10 (6-26) Glucose 126 H (70-105) mg/dL Calculated Osmolality 274 L (280-300) Calcium 10.0 (8.6-10.3) mg/dL Magnesium 1.4 L (1.6-2.6) mg/dL Total Bilirubin 1.7 H (0.3-1.0) mg/dL AST 32 (13-39) Units/L ALT 38 (7-52) Units/L Alkaline Phosphatase 52 (34-104) Units/L Serum Total Protein 7.1 (6.4-8.9) g/dL Albumin 4.4 (3.5-5.7) g/dL Globulin 2.7 (2.4-3.5) g/dL Albumin/Globulin Ratio 1.6 (1.1-2.2) Amylase 36 (29-103) Units/L Lipase 38 (11-82) Units/L Ethyl Alcohol < 10 (Less than 10) mg/dL - Radiology Data Radiology results reviewed: Yes I reviewed the patient's radiology results. - EKG Data EKG attestation: Yes I reviewed and interpreted this EKG. EKG results narrative: Normal sinus rhythm rate 80 P-R 128 QRS 93 QT/QTC 359/415. No acute ST segment elevation.
[2018-11-15] MEDS ORDERED: Promethazine 12.5 MG in 0.9 % Sodium Chloride 50 ML IVPB ONE (12:45)
[2018-11-15 12:51] LABS: Basophils % 0.3 %; Eosinophils % 0.1 %; Hematocrit 41.6 % (37.5-50.1); Immature Granulocytes % 0.3 % (0-4); Lymphocytes # 0.8 K/mcL (0.6-4.6); Lymphocytes % 12.3 %; Mean Corpuscular HGB Conc 33.7 g/dL (31.6-35.5); Mean Corpuscular Hemoglobin 33.1 pg (28.0-33.3); Mean Corpuscular Volume 98.3 fL (83.0-100.0); Mean Platelet Volume 9.1 fL (9.4-12.4); Monocytes # 0.4 K/mcL (0.0-1.3); Monocytes % 5.9 %; Neutrophils # 5.5 K/mcL (1.6-8.9); Platelet Count 139 K/mcL (140-400); Red Blood Count 4.23 M/mcL (4.19-5.50); Red Cell Distribution Width 12.7 % (11.5-14.5); Segmented Neutrophils % 81.1 %; White Blood Count 6.8 K/mcL (4.3-11.1)
[2018-11-15 12:56] LABS: Alanine Aminotransferase 38 Units/L (7-52); Albumin 4.4 g/dL (3.5-5.7); Albumin/Globulin Ratio 1.6 (1.1-2.2); Alkaline Phosphatase 52 Units/L (34-104); Amylase 36 Units/L (29-103); Aspartate Amino Transferase 32 Units/L (13-39); BUN/Creatinine Ratio 10 (6-26); Bilirubin,Total 1.7 mg/dL (0.3-1.0); Blood Urea Nitrogen 9 mg/dL (6-20); Carbon Dioxide 24 mEq/L (23-29); Chloride 97 mEq/L (98-107); Ethanol < 10 mg/dL (Less than 10); Globulin 2.7 g/dL (2.4-3.5); Glucose 126 mg/dL (70-105); Lipase 38 Units/L (11-82); Magnesium 1.4 mg/dL (1.6-2.6); Osmolality,Calculated 274 (280-300); Potassium 3.4 mEq/L (3.5-5.1); Sodium 132 mEq/L (136-145); Total Protein 7.1 g/dL (6.4-8.9); eGFR For African Americans > 60 (> 60); eGFR For Non-African Americans > 60 (> 60)
[2018-11-15] MEDS ORDERED: *HR* Promethazine 25 MG/ML VIAL ONE (12:57)
[2018-11-15] MEDS ORDERED: GI Cocktail 40 ML EACH PO ONE (14:25)
--- NOTE | 2018-11-15 16:07 | Internal Med History&Physical ---
Date of Encounter: 11/15/18 Time of Encounter: 16:06 Internal Medicine - H&P: HPI Chief complaint: nausea and vomiting Admitted From: Home Plans for Post Hospital Care: Home History of present illness: Mr. Manuel is a 38 year old male with past medical history of alcoholism, GERD, hypertension, anxiety came in with complaint of nausea and vomiting. Patient was recently admitted for alcohol withdrawal and discharged in a sterile Librium taper. Patient also had sucralfate and PPI. However he was not able to keep an ything by mouth. He has significant epigastric disc comfort. He has not resumed drinking alcohol. Denies any bloody vomitus. Patient had workup done in ER with CT abdomen showing distal esophageal wall thickening, fatty infiltration of liver. Lipase was unremarkable. Potassium and sodium mildly decreased with mild hypomagnesemia. We showed requested for intractable nausea and vomiting. Patient was seen in ER. We will manage initially was confirmed. Patient denies any palpitation or tremors. Past Med Surg Social Fam HX - Past Medical History Medical history: hypertension, other Additional medical history: heavy alcohol use Psychiatric history: anxiety - Past Surgical History Surgical History: no surgical history - Social History Smoking Status: Never smoker Smokeless Tobacco Status: No Alcohol use: heavy, recent Drug use: marijuana - Family History Paternal Grandfather Hx Family Cancer: Yes (Lung, heart) Internal Medicine - H&P: Meds Lisinopril-HCTZ 20-12.5 [Prinzide 20-12.5] 1 tab PO DAILY 08/17/18 [History] Esomeprazole Magnesium [Nexium] 40 mg PO BID 30 Days #60 capsule. 10/04/18 [Rx] Chlordiazepoxide [Librium] 25 mg PO QID 8 Days #20 capsule 11/14/18 [Rx] Folic Acid 1 mg PO DAILY #30 tablet 11/14/18 [Rx] Thiamine (B-1) [Vitamin B-1] 100 mg PO DAILY #30 tablet 11/14/18 [Rx] Allergy/AdvReac Type Severity Reaction Status Date / Time No Known Allergies Allergy Verified 11/15/18 11:45 All Systems PM: A 10-system review of systems was performed and is negative for pertinent findings except as documented above in the HPI. - Constitutional Vitals: Temp Pulse Resp BP Pulse Ox 98 F 72 16 135/101 100 11/15/18 12:07 11/15/18 12:38 11/15/18 12:38 11/15/18 12:38 11/15/18 12:38 Exam: Constitutional: Vitals as noted. Conversant. nauseaou. Eyes : Sclera white, conjunctiva clear, no lid lag, PEARLA. ENT : Grossly normal hearing. dry mucus membranes. No JVD, no cervical lymphad enopathy. no thyromegaly or mass. Respiratory : Clear to auscultation bilaterally. No accessory muscle use, rales, rhonchi or wheezes Cardiovascular : tachycardic, +S1, +S2. no murmur, gallop, rubs. No chest wall tenderness GI/Abdominal : Soft, Non-tender, Non-distended, normal bowel sounds, soft, no peritoneal signs. no orgenomegaly or mass appreciated. no hernia. Musculoskeletal: no deformity noted. no edema or cyanosis. warm extremities, pulses palpable and symmetrical in UE/LE. no calf tenderness. Neurological: AO X3, CN II-XII grossly intact, grossly normal motor and sensory exam. Skin: No skin rash, lesions or ulcers noted. Internal Med - H&P Results - Labs CBC & Chem 7: 11/15/18 12:16 11/15/18 12:16 Labs: Short CBC 11/15/18 Range/Units 12:16 WBC 6.8 (4.3-11.1) K/mcL Hgb 14.0 (12.9-16.9) g/dL Hct 41.6 (37.5-50.1) % Plt Count 139 L (140-400) K/mcL Neutrophils # 5.5 (1.6-8.9) K/mcL BMP 11/15/18 12:16 Sodium 132 L Potassium 3.4 L Chloride 97 L Carbon Dioxide 24 BUN 9 Creatinine 0.87 Glucose 126 H Calcium 10.0 Liver Function 11/15/18 Range/Units 12:16 Total Bilirubin 1.7 H (0.3-1.0) mg/dL AST 32 (13-39) Units/L ALT 38 (7-52) Units/L Alkaline Phosphatase 52 (34-104) Units/L Albumin 4.4 (3.5-5.7) g/dL - Impressions ITS Impressions Abdomen/Pelvis CT 11/15/18 14:10 IMPRESSION: 1. No acute abnormalities seen in the abdomen or pelvis 2. Fatty infiltration of the liver 3. Distal esophageal wall thickening again may represent esophagitis 4. Normal appearing appendix 5. No obstructive uropathy D/ / Win Jackson MD / Win Jackson MD Interpreting Provider: Win Jackson MD - Assessment and Plan (1) Intractable nausea and vomiting Current Visit: Yes Status: Acute Assessment and plan: Possibly due to esophagitis. Does not appear to be in alcohol withdrawal. We will keep patient on sucralfate and PPI IV twice a day. When necessary Zofran for nausea. Keep patient on banana bag and then IV fluids. Replete magnesium. CT abdomen with signs of esophagitis. We will consider GI consult if does not resolve. Qualifiers: Vomiting type: unspecified Qualified Code(s): R11.2 - Nausea with vomiting, unspecified (2) GERD (gastroesophageal reflux disease) Current Visit: No Status: Chronic Assessment and plan: PPI as well Qualifiers: Esophagitis presence: without esophagitis Qualified Code(s): K21.9 - Gastro-esophageal reflux disease without esophagitis (3) Esophagitis Current Visit: Yes Status: Acute Assessment and plan: We will keep patient on PPI and sucralfate We will consider GI consult. Does not improve (4) Alcoholism Current Visit: Yes Status: Acute Assessment and plan: Does not appear to be in alcohol withdrawal. Denies resuming alcohol intake. We will keep patient on CIWA scale and use Ativan given he is not able to keep by mouth Librium. - Time Spent With Patient Total time spent is greater than 50% in coordination of care (as documented) at patient's floor/unit and/or counseling patient:
[2018-11-15] MEDS ORDERED: *HR* LORazepam 2 MG/ML VIAL IVP PRN ×4 (16:23→18:03)
--- NOTE | 2018-11-15 16:23 | Electrocardiograph Report ---
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
[2018-11-15] MEDS: Pantoprazole 40 MG VIAL IVP SCH (19:16)
[2018-11-15] MEDS: Ringers Solution, Lactated 1,000 ML IVC SCH (19:16)
[2018-11-15] MEDS: Thiamine (B-1) 100 MG, Folic Acid 1 MG, MVI, adult with vitamin K 10 ML in 0.9 % Sodi... IVPB SCH (22:18)
[2018-11-16 01:59] LABS: BUN/Creatinine Ratio 6 (6-26); Blood Urea Nitrogen 6 mg/dL (6-20); Calcium 9.4 mg/dL (8.6-10.3); Carbon Dioxide 23 mEq/L (23-29); Chloride 102 mEq/L (98-107); Glucose 106 mg/dL (70-105); Magnesium 1.9 mg/dL (1.6-2.6); Osmolality,Calculated 278 (280-300); Phosphorous 2.8 mg/dL (2.7-4.5); Potassium 3.3 mEq/L (3.5-5.1); Sodium 135 mEq/L (136-145); eGFR For African Americans > 60 (> 60); eGFR For Non-African Americans > 60 (> 60)
[2018-11-16] MEDS: Vitamin B Complex/Vit C/Vit E 1 EACH TABLET PO SCH (09:46)
[2018-11-16] MEDS: Folic Acid 1 MG TABLET PO SCH (09:46)
[2018-11-16] MEDS: Pantoprazole 40 MG VIAL IVP SCH ×2 (09:46→17:34)
[2018-11-16] MEDS: Thiamine (B-1) 100 MG TABLET PO SCH (09:46)
--- NOTE | 2018-11-16 09:49 | Internal Med Progress Note ---
Hospitalist Progress Note - Encounter Date of Encounter: 11/16/18 Time of Encounter: 09:49 - Subjective Interval History: Patient seen and examined at bedside- States that his nausea has improved - tolerating oral intake today- will monitor and anticipate discharge in am - Exam Vitals: Temp Pulse Resp BP Pulse Ox 98.1 F 46 16 113/79 98 11/16/18 07:12 11/16/18 07:12 11/16/18 07:12 11/16/18 07:12 11/16/18 07:12 Exam: Constitutional: Vitals as noted. Conversant. nauseaou. Eyes : Sclera white, conjunctiva clear, no lid lag, PEARLA. ENT : Grossly normal hearing. dry mucus membranes. No JVD, no cervical lymphadenopathy. no thyromegaly or mass. Respiratory : Clear to auscultation bilaterally. No accessory muscle use, rales, rhonchi or wheezes Cardiovascular : tachycardic, +S1, +S2. no murmur, gallop, rubs. No chest wall tenderness GI/Abdominal : Soft, Non-tender, Non-distended, normal bowel sounds, soft, no peritoneal signs. no orgenomegaly or mass appreciated. no hernia. Musculoskeletal: no deformity noted. no edema or cyanosis. warm extremities, pulses palpable and symmetrical in UE/LE. no calf tenderness. Neurological: AO X3, CN II-XII grossly intact, grossly normal motor and sensory exam. Skin: No skin rash, lesions or ulcers noted. - Assessment and Plan (1) Intractable nausea and vomiting Current Visit: Yes Status: Acute Assessment and Plan: Possibly due to esophagitis. Does not appear to be in alcohol withdrawal. We will keep patient on sucralfate and PPI IV twice a day. When necessary Zofran for nausea. Keep patient on banana bag and then IV fluids. monitor magnesium. CT abdomen with signs of esophagitis. We will consider GI consult if does not resolve.- seems to be improvinh today (2) GERD (gastroesophageal reflux disease) Current Visit: No Status: Chronic Assessment and Plan: PPI as well (3) Esophagitis Current Visit: Yes Status: Acute Assessment and Plan: We will keep patient on PPI and sucralfate We will consider GI consult, if no improvement however appears to be improving at this time cont with diet and monitor (4) Alcoholism Current Visit: Yes Status: Acute Assessment and Plan: Does not appear to be in alcohol withdrawal. Denies resuming alcohol intake. We will keep patient on CIWA scale and use Ativan given he is not able to keep by mouth Librium.- just now toleratig diet - will transition to Librium in am - Time Spent with Patient Total time spent is greater than 50% in coordination of care (as documented) at patient's floor/unit and/or counseling patient: Internal Medicine: Result - Labs CBC & Chem 7: 11/15/18 12:16 11/16/18 00:44 Labs: Short CBC 11/15/18 Range/Units 12:16 WBC 6.8 (4.3-11.1) K/mcL Hgb 14.0 (12.9-16.9) g/dL Hct 41.6 (37.5-50.1) % Plt Count 139 L (140-400) K/mcL Neutrophils # 5.5 (1.6-8.9) K/mcL BMP 11/15/18 11/16/18 12:16 00:44 Sodium 132 L 135 L Potassium 3.4 L 3.3 L Chloride 97 L 102 Carbon Dioxide 24 23 BUN 9 6 Creatinine 0.87 0.93 Glucose 126 H 106 H Calcium 10.0 9.4 Liver Function 11/15/18 Range/Units 12:16 Total Bilirubin 1.7 H (0.3-1.0) mg/dL AST 32 (13-39) Units/L ALT 38 (7-52) Units/L Alkaline Phosphatase 52 (34-104) Units/L Albumin 4.4 (3.5-5.7) g/dL - Impressions Impressions Abdomen/Pelvis CT 11/15/18 14:10 IMPRESSION: 1. No acute abnormalities seen in the abdomen or pelvis 2. Fatty infiltration of the liver 3. Distal esophageal wall thickening again may represent esophagitis 4. Normal appearing appendix 5. No obstructive uropathy D/ / Win Jackson MD / Win Jackson MD Interpreting Provider: Win Jackson MD Consult Discharge Plan - Plan Referrals: Elliot Wilder DO [Primary Care Provider] - 11/23/18 10:00 am (1) Intractable nausea and vomiting Qualifiers: Vomiting type: unspecified Qualified Code(s): R11.2 - Nausea with vomiting, unspecified (2) GERD (gastroesophageal reflux disease) Qualifiers: Esophagitis presence: without esophagitis Qualified Code(s): K21.9 - Gastro- esophageal reflux disease without esophagitis
[2018-11-16] MEDS: Ringers Solution, Lactated 1,000 ML IVC SCH ×2 (11:47→21:38)
[2018-11-16] MEDS ORDERED: Potassium Chloride 20 MEQ, Lidocaine 1% 2 ML in 0.9 % Sodium Chloride 250 ML IVPB ONE (12:26)
[2018-11-16] MEDS ORDERED: Acetaminophen 325 MG TABLET PO PRN (14:54)
[2018-11-16] MEDS ORDERED: Melatonin 3 MG TABLET PO PRN (19:57)
[2018-11-16] MEDS: Thiamine (B-1) 100 MG, Folic Acid 1 MG, MVI, adult with vitamin K 10 ML in 0.9 % Sodi... IVPB SCH (21:39)
[2018-11-17 05:05] LABS: Immature Granulocytes % 0.4 % (0-4); Mean Platelet Volume 10.1 fL (9.4-12.4)
[2018-11-17 05:07] LABS: Basophils % 0.7 %; Eosinophils # 0.1 K/mcL (0.0-0.6); Eosinophils % 2.2 %; Hematocrit 40.3 % (37.5-50.1); Hemoglobin 13.5 g/dL (12.9-16.9); Immature Platelets 5.7 % (1.1-6.1); Lymphocytes # 1.9 K/mcL (0.6-4.6); Lymphocytes % 33.8 %; Mean Corpuscular HGB Conc 33.5 g/dL (31.6-35.5); Mean Corpuscular Hemoglobin 33.6 pg (28.0-33.3); Mean Corpuscular Volume 100.2 fL (83.0-100.0); Monocytes # 0.4 K/mcL (0.0-1.3); Monocytes % 7.3 %; Red Blood Count 4.02 M/mcL (4.19-5.50); Red Cell Distribution Width 12.5 % (11.5-14.5); Segmented Neutrophils % 55.6 %; White Blood Count 5.5 K/mcL (4.3-11.1)
[2018-11-17] MEDS: Pantoprazole 40 MG VIAL IVP SCH (05:11)
[2018-11-17 05:25] LABS: BUN/Creatinine Ratio 7 (6-26); Blood Urea Nitrogen 6 mg/dL (6-20); Carbon Dioxide 23 mEq/L (23-29); Chloride 103 mEq/L (98-107); Glucose 89 mg/dL (70-105); Magnesium 1.7 mg/dL (1.6-2.6); Osmolality,Calculated 275 (280-300); Potassium 3.8 mEq/L (3.5-5.1); Sodium 134 mEq/L (136-145); eGFR For African Americans > 60 (> 60); eGFR For Non-African Americans > 60 (> 60)
[2018-11-17 05:52] LABS: Neutrophils # 3.1 K/mcL (1.6-8.9); Platelet Count 77 K/mcL (140-400)
[2018-11-17] MEDS: Folic Acid 1 MG TABLET PO SCH (07:42)
[2018-11-17] MEDS: Ringers Solution, Lactated 1,000 ML IVC SCH ×2 (07:42→11:00)
[2018-11-17] MEDS: Thiamine (B-1) 100 MG TABLET PO SCH (07:42)
[2018-11-17] MEDS: Vitamin B Complex/Vit C/Vit E 1 EACH TABLET PO SCH (07:42)
--- NOTE | 2018-11-17 11:38 | Discharge Summary ---
- NOTES TO OUTPATIENT PROVIDER Notes to Outpatient Provider: will need to folow up with GI and PCP- offered outpatient tx for ETOH rehab however declined- given information per manager managed backup services Date of Encounter: 11/17/18 Time of Encounter: 11:35 - Discharge Diagnosis (1) Intractable nausea and vomiting Priority: Primary Status: Acute Qualifiers: Vomiting type: unspecified Qualified Code(s): R11.2 - Nausea with vomiting, unspecified (2) GERD (gastroesophageal reflux disease) Priority: Secondary Status: Chronic Qualifiers: Esophagitis presence: without esophagitis Qualified Code(s): K21.9 - Gastro-esophageal reflux disease without esophagitis (3) Esophagitis Priority: Secondary Status: Acute (4) Alcoholism Priority: Secondary Status: Acute Hospital course: Mr. Manuel is a 38 year old male past medical history of alcoholism GERD hypertension and anxiety who presented to [facility] ED with complaints of nausea vomiting. He was recently admitted to this facility for alcohol withdrawal and discharged on a Librium taper. He was also placed on Carafate as well as PPI. However patient states he is unable to tolerate anything by mouth and has been experiencing significant epigastric discomfort. He denies drinking alcohol bloody vomitus. CT of abdomen showing distal esophageal wall thickening site infiltration of liver lipase was unremarkable and potassium magnesium were low. He was admitted and given IV fluids as well as antiemetics and electrolytes were replaced. His diet was slowly advanced and is currently able to tolerate solid food without difficulty. No signs or symptoms of alcohol withdrawal. Patient was seen by manager social responsibility and offered outpatient alcohol rehabilitation however patient has declined time. He is provided information if he changes his mind. Currently he is hemodynamically stable at this time and he is ready for discharge. - Time Spent with Patient Total time spent providing and/or coordinating discharge services: - Discharge Medications Prescriptions: Continued Lisinopril-HCTZ 20-12.5 [Prinzide 20-12.5] 1 tab PO DAILY Esomeprazole Magnesium [Nexium] 40 mg PO BID 30 Days #60 capsule. Folic Acid 1 mg PO DAILY #30 tablet Chlordiazepoxide [Librium] 25 mg PO QID 8 Days #20 capsule Thiamine (B-1) [Vitamin B-1] 100 mg PO DAILY #30 tablet Multivitamin [Daily Multiple Vitamin] 1 tab PO DAILY Sucralfate [Carafate] 1 gm PO QID Home Medications: Lisinopril-HCTZ 20-12.5 [Prinzide 20-12.5] 1 tab PO DAILY 08/17/18 [History] Esomeprazole Magnesium [Nexium] 40 mg PO BID 30 Days #60 capsule. 10/04/18 [Rx] Chlordiazepoxide [Librium] 25 mg PO QID 8 Days #20 capsule 11/14/18 [Rx] Folic Acid 1 mg PO DAILY #30 tablet 11/14/18 [Rx] Thiamine (B-1) [Vitamin B-1] 100 mg PO DAILY #30 tablet 11/14/18 [Rx] Multivitamin [Daily Multiple Vitamin] 1 tab PO DAILY 11/15/18 [History] Sucralfate [Carafate] 1 gm PO QID 11/15/18 [History] Allergies/Adverse Reactions: Allergy/AdvReac Type Severity Reaction Status Date / Time No Known Allergies Allergy Verified 11/15/18 11:45 Date of admission: 11/15/18 15:57 Primary care physician: Elliot Wilder DO Consults: 11/15/18 17:41 Consult to Harvesting Supervisor [CONS] Routine Reason for SW Consult: ETOH 11/15/18 18:04 Consult to Harvesting Supervisor [CONS] Routine Reason for SW Consult: etoh Discharging clinician: Va Baer Anticipated date of discharge: 11/17/18 - Constitutional Vitals: Temp Pulse Resp BP Pulse Ox 98.1 F 56 16 128/77 98 11/17/18 07:10 11/17/18 07:10 11/17/18 07:10 11/17/18 07:10 11/17/18 07:10 Exam: Constitutional: Vitals as noted. Conversant. nauseaou. Eyes : Sclera white, conjunctiva clear, no lid lag, PEARLA. ENT : Grossly normal hearing. dry mucus membranes. No JVD, no cervical lymphadenopathy. no thyromegaly or mass. Respiratory : Clear to auscultation bilaterally. No accessory muscle use, rales, rhonchi or wheezes Cardiovascular : tachycardic, +S1, +S2. no murmur, gallop, rubs. No chest wall tenderness GI/Abdominal : Soft, Non-tender, Non-distended, normal bowel sounds, soft, no peritoneal signs. no orgenomegaly or mass appreciated. no hernia. Musculoskeletal: no deformity noted. no edema or cyanosis. warm extremities, pulses palpable and symmetrical in UE/LE. no calf tenderness. Neurological: AO X3, CN II-XII grossly intact, grossly normal motor and sensory exam. Skin: No skin rash, lesions or ulcers noted. - Patient Status Disposition: Home, Self-Care Condition: Fair Functional capacity at discharge: independent ambulation Overall status at discharge: patient is back to baseline - Discharge Instructions Follow Up With: Corbin Delgado MD [Partnered Physician] - (Appointment has been requested.) Elliot Wilder DO [Primary Care Provider] - 11/23/18 10:00 am - Diet and Activity Activity: increase activity as tolerated Diet: advance to your usual diet
--- NOTE | 2018-11-17 12:18 | Electrocardiograph Report ---
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
[2018-11-17 12:22] VITALS: BP 126/74
== END 2018-11-17 12:56 | disposition home or self-care (01) ==
LOC: EMEROOARM 11:40 → 3BNU 11:40
PROVIDERS: ADMIT Internal Medicine; ATTEND Internal Medicine

== ENCOUNTER 2019-01-09 16:46 | Observation (INO) ==
[2019-01-09 18:06] LABS: Basophils # 0.1 K/mcL (0.0-0.2); Basophils % 0.4 %; Hematocrit 38.9 % (37.5-50.1); Hemoglobin 13.7 g/dL (12.9-16.9); Immature Granulocytes % 0.4 % (0-4); Lymphocytes # 0.8 K/mcL (0.6-4.6); Lymphocytes % 6.9 %; Mean Corpuscular HGB Conc 35.2 g/dL (31.6-35.5); Mean Corpuscular Hemoglobin 32.9 pg (28.0-33.3); Mean Corpuscular Volume 93.3 fL (83.0-100.0); Mean Platelet Volume 8.1 fL (9.4-12.4); Monocytes % 8.3 %; Neutrophils # 9.6 K/mcL (1.6-8.9); Platelet Count 319 K/mcL (140-400); Red Blood Count 4.17 M/mcL (4.19-5.50); Red Cell Distribution Width 13.1 % (11.5-14.5); White Blood Count 11.4 K/mcL (4.3-11.1)
[2019-01-09] MEDS ORDERED: *HR* LORazepam 2 MG/ML VIAL IM ONE (18:06)
[2019-01-09 18:23] LABS: Acetaminophen < 10 mcg/mL (10-20); BUN/Creatinine Ratio 21 (6-26); Blood Urea Nitrogen 22 mg/dL (6-20); Calcium 10.8 mg/dL (8.6-10.3); Carbon Dioxide 18 mEq/L (23-29); Chloride 101 mEq/L (98-107); Ethanol < 10 mg/dL (Less than 10); Glucose 140 mg/dL (70-105); Osmolality,Calculated 294 (280-300); Salicylate < 2.5 mg/dL (15.0-30.0); Sodium 139 mEq/L (136-145); eGFR For African Americans > 60 (> 60); eGFR For Non-African Americans > 60 (> 60)
[2019-01-09] MEDS ORDERED: Ondansetron 4 MG/2 ML VIAL IVP STA (18:37)
[2019-01-09] MEDS ORDERED: *HR* LORazepam 2 MG/ML VIAL IVP ONE (18:37)
[2019-01-09] MEDS ORDERED: 0.9 % Sodium Chloride 1,000 ML IVC ONE (18:48)
[2019-01-09] MEDS ORDERED: 0.9 % Sodium Chloride 1,000 ML ONE (18:49)
[2019-01-09 19:11] LABS: Prothrombin Time 11.9 Seconds (9.4-12.1)
[2019-01-09 19:12] LABS: Alanine Aminotransferase 15 Units/L (7-52); Albumin/Globulin Ratio 1.5 (1.1-2.2); Alkaline Phosphatase 67 Units/L (34-104); Aspartate Amino Transferase 23 Units/L (13-39); Bilirubin,Direct 0.4 mg/dL (0.0-0.2); Bilirubin,Indirect 2.5 mg/dL (0.0-1.0); Bilirubin,Total 2.9 mg/dL (0.3-1.0); Globulin 3.3 g/dL (2.4-3.5); Magnesium 1.8 mg/dL (1.6-2.6); Total Protein 8.3 g/dL (6.4-8.9)
[2019-01-09 19:13] LABS: Activated Partial Thrombo Time 26.8 Seconds (26.0-36.0)
[2019-01-09 19:36] LABS: Bilirubin,Urine Small (Negative); Blood,Urine Negative (Negative); Clarity,Urine Clear (Clear); Color,Urine Dark Yellow (Yellow); Glucose,Urine (UA) Normal (Normal); Ketones,Urine >=160 mg/dL (Negative); Leukocyte Esterase,Urine Trace (Negative); Nitrite,Urine Negative (Negative); Protein,Urine 100 mg/dL (Neg-Trace); Specific Gravity,Urine > 1.030 (1.010-1.025); Urobilinogen,Urine Normal (Normal)
[2019-01-09 19:38] LABS: Bacteria,Urine None Seen per hpf (None-Few); Hyaline Casts,Urine None Seen per lpf (None-Few); RBC,Urine 0-3 per hpf (0-3)
[2019-01-09 19:48] LABS: Amphetamine Screen,Urine Negative ng/mL (Cutoff=1000); Barbiturate Screen,Urine Negative ng/mL (Cutoff=200); Benzodiazepines Screen,Urine Negative ng/mL (Cutoff=200); Cannabinoid Screen,Urine Positive ng/mL (Cutoff = 50); Cocaine Screen,Urine Negative ng/mL (Cutoff= 300); Opiate Screen,Urine Negative ng/mL (Cutoff=300); Phencyclidine Screen,Urine Negative ng/mL (Cutoff=25)
[2019-01-09] MEDS ORDERED: *HR* LORazepam 2 MG/ML VIAL IVP PRN ×3 (19:53)
[2019-01-09 20:05] LABS: Squamous Epithelial Cell,Urine Few per lpf (None-Few)
[2019-01-09] MEDS ORDERED: Thiamine (B-1) 100 MG, Folic Acid 1 MG, MVI, adult with vitamin K 10 ML in 0.9 % Sodi... IVPB SCH (21:00)
[2019-01-09] MEDS ORDERED: *HR* Promethazine 25 MG/ML VIAL IVP PRN (21:34)
[2019-01-09] MEDS ORDERED: Naloxone 0.4 MG/ML INJ IVP PRN (22:06)
[2019-01-09] MEDS: 0.9 % Sodium Chloride 1,000 ML IVC SCH (22:28)
[2019-01-10] MEDS ORDERED: Melatonin 3 MG TABLET PO PRN (01:22)
[2019-01-10 02:03] LABS: Hematocrit 35.8 % (37.5-50.1); Hemoglobin 12.4 g/dL (12.9-16.9); Mean Corpuscular HGB Conc 34.6 g/dL (31.6-35.5); Mean Corpuscular Hemoglobin 33.2 pg (28.0-33.3); Mean Platelet Volume 8.4 fL (9.4-12.4); Platelet Count 253 K/mcL (140-400); Red Blood Count 3.73 M/mcL (4.19-5.50); Red Cell Distribution Width 13.2 % (11.5-14.5); White Blood Count 8.5 K/mcL (4.3-11.1)
[2019-01-10 02:25] LABS: Alanine Aminotransferase 12 Units/L (7-52); Albumin 4.5 g/dL (3.5-5.7); Albumin/Globulin Ratio 1.6 (1.1-2.2); Alkaline Phosphatase 55 Units/L (34-104); Aspartate Amino Transferase 20 Units/L (13-39); BUN/Creatinine Ratio 20 (6-26); Bilirubin,Total 3.1 mg/dL (0.3-1.0); Blood Urea Nitrogen 21 mg/dL (6-20); Calcium 9.6 mg/dL (8.6-10.3); Carbon Dioxide 21 mEq/L (23-29); Chloride 104 mEq/L (98-107); Globulin 2.9 g/dL (2.4-3.5); Glucose 102 mg/dL (70-105); Osmolality,Calculated 295 (280-300); Potassium 3.8 mEq/L (3.5-5.1); Sodium 141 mEq/L (136-145); Total Protein 7.4 g/dL (6.4-8.9); eGFR For African Americans > 60 (> 60); eGFR For Non-African Americans > 60 (> 60)
[2019-01-10] MEDS ORDERED: Pantoprazole 40 MG VIAL IVP SCH (06:00)
[2019-01-10] MEDS: *HR* Heparin 5,000 UNIT/ML VIAL SQ SCH ×2 (06:21→14:42)
[2019-01-10] MEDS: 0.9 % Sodium Chloride 1,000 ML IVC SCH ×2 (06:22→14:42)
[2019-01-10 16:00] VITALS: BP 114/76
== END 2019-01-10 18:42 | disposition home or self-care (01) ==
LOC: EMEROOARM 16:46 → 2NENU 16:46
PROVIDERS: ADMIT Family Medicine; ATTEND Family Medicine

== ENCOUNTER 2019-10-04 04:24 | Observation (INO) ==
[2019-10-04] MEDS ORDERED: 0.9 % Sodium Chloride 1,000 ML IVC ONE ×2 (05:18→06:38)
[2019-10-04] MEDS ORDERED: Ondansetron 4 MG/2 ML VIAL IVP ONE (05:19)
[2019-10-04 05:38] LABS: Basophils % 0.2 %; Eosinophils % 0.2 %; Hematocrit 42.8 % (37.5-50.1); Immature Granulocytes % 0.5 % (0-4); Lymphocytes # 1.6 K/mcL (0.6-4.6); Lymphocytes % 11.7 %; Mean Corpuscular HGB Conc 32.7 g/dL (31.6-35.5); Mean Corpuscular Hemoglobin 31.8 pg (28.0-33.3); Mean Corpuscular Volume 97.3 fL (83.0-100.0); Mean Platelet Volume 8.4 fL (9.4-12.4); Monocytes # 0.7 K/mcL (0.0-1.3); Monocytes % 5.2 %; Neutrophils # 11.1 K/mcL (1.6-8.9); Platelet Count 245 K/mcL (140-400); Red Cell Distribution Width 13.5 % (11.5-14.5); Segmented Neutrophils % 82.2 %; White Blood Count 13.5 K/mcL (4.3-11.1)
[2019-10-04] MEDS ORDERED: Prochlorperazine 10 MG/2 ML VIAL IVP ONE (06:25)
[2019-10-04] MEDS ORDERED: Isovue-370 500 ML BOTTLE IVP ONE (06:34)
[2019-10-04 07:05] LABS: Alanine Aminotransferase 10 Units/L (7-52); Albumin 4.5 g/dL (3.5-5.7); Albumin/Globulin Ratio 1.8 (1.1-2.2); Alkaline Phosphatase 56 Units/L (34-104); Aspartate Amino Transferase 12 Units/L (13-39); BUN/Creatinine Ratio 24 (6-26); Bilirubin,Total 0.9 mg/dL (0.3-1.0); Blood Urea Nitrogen 22 mg/dL (6-20); Calcium 9.6 mg/dL (8.6-10.3); Carbon Dioxide 24 mEq/L (23-29); Chloride 104 mEq/L (98-107); Globulin 2.5 g/dL (2.4-3.5); Glucose 108 mg/dL (70-105); Lipase 21 Units/L (11-82); Magnesium 1.9 mg/dL (1.6-2.6); Osmolality,Calculated 290 (280-300); Potassium 3.7 mEq/L (3.5-5.1); Sodium 138 mEq/L (136-145); eGFR For African Americans > 60 (> 60); eGFR For Non-African Americans > 60 (> 60)
[2019-10-04] MEDS: 0.9 % Sodium Chloride 1,000 ML IVC SCH ×2 (11:18→14:45)
[2019-10-04 12:01] LABS: Adenovirus Not Detected (Not Detect); Bordetella Pertussis Not Detected (Not Detect); Chlamydophila pneumoniae Not Detected (Not Detect); Coronavirus 229E Not Detected (Not Detect); Coronavirus HKU1 Not Detected (Not Detect); Coronavirus NL63 Not Detected (Not Detect); Coronavirus OC43 Not Detected (Not Detect); Human Metapneumovirus Not Detected (Not Detect); Human Rhinovirus/Enterovirus DETECTED (Not Detect); Influenza A Subtype 2009 H1 Not Detected (Not Detect); Influenza B Not Detected (Not Detect); Mycoplasma pneumoniae Not Detected (Not Detect); Parainfluenza Virus 1 Not Detected (Not Detect); Parainfluenza Virus 2 Not Detected (Not Detect); Parainfluenza Virus 3 Not Detected (Not Detect); Parainfluenza Virus 4 Not Detected (Not Detect); Respiratory Syncytial Virus Not Detected (Not Detect)
[2019-10-04] MEDS ORDERED: Ondansetron 4 MG/2 ML VIAL IVP PRN (14:22)
[2019-10-04] MEDS: Pantoprazole 40 MG VIAL IVP SCH (17:00)
[2019-10-04] MEDS: Acetaminophen IV 1,000 MG/100 ML INFUS..BTL IVPB SCH ×2 (17:01→23:32)
[2019-10-04] MEDS: Ampicillin/Sulbactam 3,000 MG in 0.9 % Sodium Chloride Mini Bag 100 ML IVPB SCH ×2 (17:25→23:49)
[2019-10-05] MEDS: 0.9 % Sodium Chloride 1,000 ML IVC SCH ×4 (00:30→08:22)
[2019-10-05 02:38] LABS: Basophils % 0.1 %; Eosinophils % 0.1 %; Hematocrit 36.9 % (37.5-50.1); Immature Granulocytes % 0.2 % (0-4); Lymphocytes # 2.4 K/mcL (0.6-4.6); Mean Corpuscular HGB Conc 33.6 g/dL (31.6-35.5); Mean Corpuscular Volume 95.3 fL (83.0-100.0); Mean Platelet Volume 8.7 fL (9.4-12.4); Monocytes % 10.4 %; Neutrophils # 6.4 K/mcL (1.6-8.9); Platelet Count 251 K/mcL (140-400); Red Blood Count 3.87 M/mcL (4.19-5.50); Red Cell Distribution Width 13.6 % (11.5-14.5); Segmented Neutrophils % 65.2 %; White Blood Count 9.8 K/mcL (4.3-11.1)
[2019-10-05 02:39] LABS: Hemoglobin 12.4 g/dL (12.9-16.9)
[2019-10-05] MEDS: Pantoprazole 40 MG VIAL IVP SCH (06:02)
[2019-10-05] MEDS: Acetaminophen IV 1,000 MG/100 ML INFUS..BTL IVPB SCH ×3 (06:04→12:00)
[2019-10-05] MEDS: Ampicillin/Sulbactam 3,000 MG in 0.9 % Sodium Chloride Mini Bag 100 ML IVPB SCH ×2 (08:18→12:26)
[2019-10-05] MEDS ORDERED: *HR* Midazolam HCl 2 MG/2 ML VIAL ONE (09:27)
[2019-10-05] MEDS ORDERED: *HR* FentaNYL (PF) 100 MCG/2 ML VIAL ONE ×2 (09:27→10:55)
[2019-10-05] MEDS ORDERED: *HR* Propofol 200 MG/20 ML VIAL IVP ONE (09:27)
[2019-10-05] MEDS ORDERED: Ondansetron 4 MG/2 ML VIAL ONE (09:28)
[2019-10-05] MEDS ORDERED: Dexamethasone 4 MG/ML VIAL ONE (09:28)
[2019-10-05] MEDS ORDERED: *HR* Rocuronium Bromide 50 MG/5 ML VIAL ONE (09:28)
[2019-10-05] MEDS ORDERED: Lidocaine -MPF 2% 2 ML VIAL ONE (09:28)
[2019-10-05] MEDS ORDERED: Ondansetron 4 MG/2 ML VIAL IVP ONE (09:45)
[2019-10-05] MEDS ORDERED: *HR* Promethazine 25 MG/ML VIAL IVP PRN (09:45)
[2019-10-05] MEDS ORDERED: *HR* OxyCODONE Immed Rel 5 MG TABLET PO PRN (09:45)
[2019-10-05] MEDS ORDERED: *HR* HYDROmorphone PF 0.5 MG/0.5 ML SYRINGE IVP PRN (09:45)
[2019-10-05] MEDS ORDERED: Lidocaine HCL 4 ML Topical Solution (Laryng-O-Jet Kit Sterile Pak) TP ONE (10:36)
[2019-10-05] MEDS ORDERED: Ketorolac 30 MG/ML VIAL ONE (11:27)
[2019-10-05] MEDS ORDERED: Acetaminophen IV 1,000 MG/100 ML INFUS..BTL ONE (11:59)
[2019-10-05] MEDS ORDERED: Lisinopril-HCTZ 20-12.5mg TABLET PO SCH (12:00)
[2019-10-05] MEDS ORDERED: Ondansetron 4 MG/2 ML VIAL IVP PRN (12:21)
[2019-10-05] MEDS ORDERED: *HR* OxyCODONE/APAP 5/325 TABLET PO PRN (12:21)
[2019-10-05 13:21] VITALS: BP 125/70
[2019-10-05] MEDS ORDERED: Pantoprazole 40 MG VIAL IVP SCH (18:00)
[2019-10-05] MEDS ORDERED: Ampicillin/Sulbactam 3,000 MG in 0.9 % Sodium Chloride Mini Bag 100 ML IVPB SCH (18:00)
[2019-10-05] MEDS ORDERED: Ketorolac 15 MG/ML VIAL IVP SCH (18:00)
[2019-10-06] MEDS ORDERED: Lisinopril-HCTZ 20-12.5mg TABLET PO SCH (12:00)
== END 2019-10-05 15:34 | disposition home or self-care (01) ==
LOC: EMEROOARM 04:24 → 3BNU 04:24
PROVIDERS: ADMIT Surgery; ATTEND Surgery

== ENCOUNTER 2019-10-14 08:21 | Observation (INO) ==
[2019-10-14] MEDS ORDERED: Ondansetron 4 MG/2 ML VIAL IVP ONE (08:59)
[2019-10-14] MEDS ORDERED: 0.9 % Sodium Chloride 1,000 ML IVC ONE (08:59)
[2019-10-14 09:14] LABS: Alanine Aminotransferase 16 Units/L (7-52); Albumin 4.8 g/dL (3.5-5.7); Albumin/Globulin Ratio 1.8 (1.1-2.2); Alkaline Phosphatase 63 Units/L (34-104); Amylase 61 Units/L (29-103); Aspartate Amino Transferase 13 Units/L (13-39); BUN/Creatinine Ratio 19 (6-26); Bilirubin,Direct 0.1 mg/dL (0.0-0.2); Bilirubin,Indirect 0.6 mg/dL (0.0-1.0); Bilirubin,Total 0.7 mg/dL (0.3-1.0); Blood Urea Nitrogen 18 mg/dL (6-20); Calcium 9.9 mg/dL (8.6-10.3); Carbon Dioxide 32 mEq/L (23-29); Chloride 101 mEq/L (98-107); Globulin 2.6 g/dL (2.4-3.5); Glucose 107 mg/dL (70-105); Lipase 86 Units/L (11-82); Osmolality,Calculated 290 (280-300); Sodium 139 mEq/L (136-145); Total Protein 7.4 g/dL (6.4-8.9); eGFR For African Americans > 60 (> 60); eGFR For Non-African Americans > 60 (> 60)
[2019-10-14 09:23] LABS: Basophils # 0.1 K/mcL (0.0-0.2); Basophils % 0.8 %; Eosinophils # 0.3 K/mcL (0.0-0.6); Eosinophils % 3.2 %; Hematocrit 45.6 % (37.5-50.1); Hemoglobin 14.5 g/dL (12.9-16.9); Immature Granulocytes % 0.6 % (0-4); Lymphocytes # 2.7 K/mcL (0.6-4.6); Lymphocytes % 26.7 %; Mean Corpuscular HGB Conc 31.8 g/dL (31.6-35.5); Mean Corpuscular Hemoglobin 32.2 pg (28.0-33.3); Mean Corpuscular Volume 101.1 fL (83.0-100.0); Mean Platelet Volume 8.5 fL (9.4-12.4); Monocytes # 0.9 K/mcL (0.0-1.3); Monocytes % 9.1 %; Neutrophils # 6.1 K/mcL (1.6-8.9); Platelet Count 344 K/mcL (140-400); Red Blood Count 4.51 M/mcL (4.19-5.50); Red Cell Distribution Width 13.5 % (11.5-14.5); Segmented Neutrophils % 59.6 %; White Blood Count 10.3 K/mcL (4.3-11.1)
[2019-10-14 10:08] LABS: Bilirubin,Urine Negative (Negative); Blood,Urine Negative (Negative); Clarity,Urine Clear (Clear); Color,Urine Light-Yellow (Yellow); Glucose,Urine (UA) Normal (Normal); Ketones,Urine Negative (Negative); Leukocyte Esterase,Urine Negative (Negative); Nitrite,Urine Negative (Negative); PH,Urine 6.5 pH Units (5.0-8.0); Protein,Urine Negative (Neg-Trace); Specific Gravity,Urine 1.023 (1.010-1.025); Urobilinogen,Urine Normal (Normal)
[2019-10-14] MEDS ORDERED: *HR* Promethazine 25 MG/ML VIAL IVP STA (10:10)
[2019-10-14] MEDS ORDERED: Ketorolac 15 MG/ML VIAL IVP ONE (10:11)
[2019-10-14] MEDS ORDERED: *HR* Promethazine 25 MG/ML VIAL IVP ONE (11:53)
[2019-10-14] MEDS ORDERED: Famotidine 20 MG/2 ML VIAL IVP ONE (12:43)
[2019-10-14] MEDS ORDERED: Pantoprazole 80 MG in 0.9 % Sodium Chloride 50 ML IVPB ONE (12:46)
[2019-10-14] MEDS ORDERED: *HR* Promethazine 25 MG/ML VIAL IVP PRN (13:18)
[2019-10-14] MEDS ORDERED: Acetaminophen 325 MG TABLET PO PRN (13:18)
[2019-10-14] MEDS ORDERED: Ketorolac 15 MG/ML VIAL IVP PRN (13:18)
[2019-10-14] MEDS ORDERED: Ondansetron 4 MG/2 ML VIAL IVP PRN (13:18)
[2019-10-14] MEDS ORDERED: Naloxone 0.4 MG/ML INJ IVP PRN (13:18)
[2019-10-14] MEDS: 0.9 % Sodium Chloride 1,000 ML IVC SCH (14:43)
[2019-10-14] MEDS ORDERED: GI Cocktail 40 ML EACH PO ONE (15:59)
[2019-10-14] MEDS: Sucralfate 1 GM TABLET PO SCH ×2 (16:07→20:51)
[2019-10-14] MEDS: Pantoprazole 40 MG VIAL IVP SCH (20:49)
[2019-10-15 02:33] LABS: INR 1.1; Prothrombin Time 12.2 Seconds (9.4-12.1)
[2019-10-15 02:39] LABS: Basophils % 0.3 %; Eosinophils % 0.3 %; Hematocrit 40.6 % (37.5-50.1); Hemoglobin 13.3 g/dL (12.9-16.9); Immature Granulocytes % 0.4 % (0-4); Lymphocytes # 2.7 K/mcL (0.6-4.6); Lymphocytes % 22.2 %; Mean Corpuscular HGB Conc 32.8 g/dL (31.6-35.5); Mean Corpuscular Volume 97.8 fL (83.0-100.0); Mean Platelet Volume 8.4 fL (9.4-12.4); Monocytes % 8.7 %; Neutrophils # 8.2 K/mcL (1.6-8.9); Platelet Count 261 K/mcL (140-400); Red Blood Count 4.15 M/mcL (4.19-5.50); Red Cell Distribution Width 13.6 % (11.5-14.5); Segmented Neutrophils % 68.1 %
[2019-10-15 02:47] LABS: BUN/Creatinine Ratio 18 (6-26); Blood Urea Nitrogen 15 mg/dL (6-20); Calcium 9.5 mg/dL (8.6-10.3); Carbon Dioxide 26 mEq/L (23-29); Chloride 106 mEq/L (98-107); Glucose 94 mg/dL (70-105); Magnesium 1.9 mg/dL (1.6-2.6); Osmolality,Calculated 291 (280-300); Phosphorous 4.3 mg/dL (2.7-4.5); Potassium 4.4 mEq/L (3.5-5.1); Sodium 140 mEq/L (136-145); eGFR For African Americans > 60 (> 60); eGFR For Non-African Americans > 60 (> 60)
[2019-10-15] MEDS: 0.9 % Sodium Chloride 1,000 ML IVC SCH (05:32)
[2019-10-15] MEDS ORDERED: *HR* Enoxaparin 40 MG/0.4 ML SYRINGE SQ SCH (06:00)
[2019-10-15 07:27] VITALS: BP 100/66
[2019-10-15] MEDS: Sucralfate 1 GM TABLET PO SCH (07:57)
[2019-10-15] MEDS: Pantoprazole 40 MG VIAL IVP SCH (07:57)
[2019-10-15] MEDS ORDERED: Lisinopril-HCTZ 20-12.5mg TABLET PO SCH (12:00)
== END 2019-10-15 10:25 | disposition home or self-care (01) ==
LOC: EMEROOARM 08:21 → 3ANU 08:21
PROVIDERS: ADMIT Internal Medicine; ATTEND Internal Medicine